=== PATIENT | female | born 1990 | race Two or more races ===

== ENCOUNTER → 2019-09-19 | Outpatient (CLI) | payer BC ==
[2019-09-19 11:11] LABS: Urine WBC None Seen /hpf (0 - 5)
[2019-09-19 11:17] LABS: Basophils # (auto) 0.1 uL; Eosinophils # (auto) 0.1 uL; Mean Corpuscular Hemoglobin 18.5 pg (28.0-32.0); Mean Corpuscular Volume 58.4 fL (80.0-100.0); Monocytes # (auto) 0.6 uL
[2019-09-19 11:19] LABS: Basophils % (auto) 0.8 % (0.0-2.0); Eosinophils % (auto) 1.1 % (0.0-7.0); Hematocrit 38.4 % (36.0-46.0); Hemoglobin 12.1 g/dL (12.2-16.2); Lymphocytes # (auto) 2.8 uL; Lymphocytes % (auto) 30.1 % (10.0-50.0); Mean Corpuscular Hgb Conc. 31.6 g/dL (32.0-36.0); Monocytes % (auto) 6.1 % (0.0-12.0); Neutrophils # (auto) 5.8 uL; Neutrophils % (auto) 61.9 % (37.0-80.0); Nucleated Red Blood Cells % 0.1 %; Platelet Count (auto) 213 10^3/uL (140-450); Red Blood Cells 6.56 10^6/uL (4.0-5.20); Red Cell Distribution Width 18.9 % (11.8-14.3); White Blood Cell 9.3 10^3/uL (4.4-10.8)
[2019-09-19 11:40] LABS: Albumin 3.7 g/dL (3.4-5.0); Calcium 9.2 mg/dL (8.5-10.1); Potassium 4.2 mmol/L (3.5-5.1)
[2019-09-19 11:52] LABS: BUN/Creatinine Ratio 26.2; Bilirubin, Total 0.7 mg/dL (0.2-1.0); CRP High Sensitivity 0.87 mg/dL (< 0.3); Total Protein 8.1 g/dL (6.4-8.2)
[2019-09-19 12:10] LABS: Urine Bacteria NONE SEEN /hpf (None Seen); Urine Blood Negative /uL (Negative); Urine Specific Gravity 1.022 (1.001-1.035)
== END | disposition home or self-care (01) ==
LOC: LAB 10:58
PROVIDERS: ATTEND Internal Medicine
DX: M25.531 Pain in right wrist (principal)
CPT/HCPCS: 36415; 80053; 80061; 81001; 85025; 85652; 86141

== ENCOUNTER → 2020-12-10 | Outpatient (CLI) | payer BC | END | disposition home or self-care (01) | LOC: LAB 10:13 | PROVIDERS: ATTEND Internal Medicine | DX: R05 Cough (principal); R06.00 Dyspnea, unspecified | CPT/HCPCS: 36415; 85379 ==

== ENCOUNTER → 2021-08-31 | Outpatient (CLI) | payer BC ==
[2021-08-31 07:10] LABS: Eosinophils # (auto) 0.1 10 ^3/uL (0-0.8); Eosinophils % (auto) 1.1 % (0.0-7.0); Mean Corpuscular Hgb Conc. 31.6 g/dL (32.0-36.0); Neutrophils # (auto) 5.2 10 ^3/uL (1.6-8.6); Neutrophils % (auto) 58.3 % (37.0-80.0); Red Blood Cells 6.71 10^6/uL (4.0-5.20)
[2021-08-31 07:12] LABS: Basophils # (auto) 0 10 ^3/uL (0-0.2); Basophils % (auto) 0.4 % (0.0-2.0); Lymphocytes # (auto) 3.1 10 ^3/uL (0.4-5.4); Lymphocytes % (auto) 35.1 % (10.0-50.0); Mean Corpuscular Hemoglobin 17.9 pg (28.0-32.0); Mean Corpuscular Volume 56.6 fL (80.0-100.0); Monocytes # (auto) 0.5 10 ^3/uL (0-1.3); Monocytes % (auto) 5.1 % (0.0-12.0); Red Cell Distribution Width 19.6 % (11.8-14.3); White Blood Cell 8.9 10^3/uL (4.4-10.8)
[2021-08-31 07:48] LABS: Albumin 3.9 g/dL (3.4-5.0); Calcium 9.2 mg/dL (8.5-10.1); Potassium 3.9 mmol/L (3.5-5.1)
[2021-08-31 07:53] LABS: BUN/Creatinine Ratio 21.4; Bilirubin, Total 0.6 mg/dL (0.2-1.0); Total Protein 7.8 g/dL (6.4-8.2)
== END | disposition home or self-care (01) ==
LOC: LAB 06:44
PROVIDERS: ATTEND Internal Medicine
DX: E78.5 Hyperlipidemia, unspecified (principal); D64.9 Anemia, unspecified
CPT/HCPCS: 36415; 80053; 80061; 84443; 85025; 85652

== ENCOUNTER → 2021-10-25 | Outpatient (CLI) | payer BC ==
[2021-10-25 10:12] LABS: Follicle Stimulating Hormone 5.15 IU/L (SEE BELOW)
[2021-10-25 12:44] LABS: Leuteinizing Hormone 5.1 IU/L
== END | disposition home or self-care (01) ==
LOC: LAB 08:41
PROVIDERS: ATTEND Obstetrics & Gynecology
DX: N92.1 Excessive and frequent menstruation with irregular cycle (principal)
CPT/HCPCS: 36415; 82670; 83001; 83002; 84403; 84443

== ENCOUNTER → 2021-11-15 | Outpatient (CLI) | payer BC ==
[~2021-11-15] MED LIST: HYDR-4902 PO; IBUP800T27 PO; ONDA-144 PO
== END | disposition home or self-care (01) ==
LOC: LAB 09:07
PROVIDERS: ATTEND Obstetrics & Gynecology
DX: N85.00 Endometrial hyperplasia, unspecified (principal); N92.0 Excessive and frequent menstruation with regular cycle

== ENCOUNTER → 2021-12-02 | Day surgery (SDC) | payer BC ==
[2021-11-30 11:12] LABS: Basophils # (auto) 0.1 10 ^3/uL (0-0.2); Basophils % (auto) 0.8 % (0.0-2.0); Eosinophils # (auto) 0 10 ^3/uL (0-0.8); Eosinophils % (auto) 0.6 % (0.0-7.0); Hematocrit 38.1 % (36.0-46.0); Hemoglobin 12.1 g/dL (12.2-16.2); Lymphocytes # (auto) 2.5 10 ^3/uL (0.4-5.4); Lymphocytes % (auto) 29.6 % (10.0-50.0); Mean Corpuscular Hemoglobin 17.8 pg (28.0-32.0); Mean Corpuscular Hgb Conc. 31.6 g/dL (32.0-36.0); Mean Corpuscular Volume 56.2 fL (80.0-100.0); Monocytes # (auto) 0.4 10 ^3/uL (0-1.3); Monocytes % (auto) 4.5 % (0.0-12.0); Neutrophils # (auto) 5.4 10 ^3/uL (1.6-8.6); Neutrophils % (auto) 64.5 % (37.0-80.0); Nucleated Red Blood Cells % 0.1 %; Red Blood Cells 6.79 10^6/uL (4.0-5.20); Red Cell Distribution Width 19.2 % (11.8-14.3); White Blood Cell 8.4 10^3/uL (4.4-10.8)
[2021-11-30 11:31] LABS: INR 0.98 (0.9-1.15); Partial Thromboplastin Time 28.3 sec (23.6-33.0)
[2021-11-30 11:33] LABS: Urine Bacteria FEW /hpf (None Seen); Urine Blood 3+ /uL (Negative); Urine Specific Gravity 1.012 (1.001-1.035); Urine WBC 1 /hpf (0 - 5)
[2021-11-30 11:54] LABS: Albumin 3.8 g/dL (3.4-5.0); Calcium 9.5 mg/dL (8.5-10.1); Potassium 3.7 mmol/L (3.5-5.1)
[2021-11-30 11:56] LABS: BUN/Creatinine Ratio 19.7
[2021-11-30 11:59] LABS: Bilirubin, Total 0.4 mg/dL (0.2-1.0); Total Protein 8.3 g/dL (6.4-8.2)
[~2021-12-02] VITALS: Ht 165.1 cm; Wt 99.8 kg
[~2021-12-02] MED LIST changes: +CHLORHEXIDINE 4% TOPICAL soln 118ml TOP ONE; +DexAMETHasone SOD PHOS 10MG/1ML VIAL INJ ONE; +LABETALOL HCL 5 MG/ML 4ML SYRINGE IV PRN; +LACTATED RINGER'S 1,000 ML IV SCH; +MEPERIDINE HCL (25 MG/ML) 1ML VIAL ONE; +MIDAZOLAM HCL 2MG/2ML 2ml VIAL (1mg/ml) IV PRN; +MIDAZOLAM HCL 2MG/2ML 2ml VIAL (1mg/ml) ONE; +MORPHINE SULFATE 4 MG/ML SYR/VIAL IV PRN; +ONDANSETRON HCL 4 MG/2 ML VIAL IV PRN; +PROPOFOL 10 MG/ML 20 ML IV ONE; +ePHEDrine SULFATE 50 MG/ML AMP IV PRN; +fentaNYL CITRATE 100 MCG/2 ML VL ONE
[2021-12-02] MEDS: ceFAZolin 1GM/50ML 50 ML IV ONE ×4 (07:15→09:55)
[2021-12-02] MEDS: HYDROmorphone HCL 2 MG/ML VL IV PRN ×2 (08:30→08:45)
[2021-12-02 09:05] VITALS: BP 109/62
== END | disposition home or self-care (01) ==
LOC: SUR 06:12
PROVIDERS: ATTEND Obstetrics & Gynecology
DX: N93.9 Abnormal uterine and vaginal bleeding, unspecified (principal); N85.00 Endometrial hyperplasia, unspecified; E28.2 Polycystic ovarian syndrome; E66.9 Obesity, unspecified; Z68.36 Body mass index [BMI] 36.0-36.9, adult; Z83.2 Family history of diseases of the blood and blood-forming organs and certain disorders involving the immune mechanism; Z20.822 Contact with and (suspected) exposure to COVID-19; Z98.51 Tubal ligation status
CPT/HCPCS: 36415; 58563; 80053; 81001; 81025; 84702; 85025; 85610; 85730; 86850; 86900; 86901; 88305; J0690; J1100; J1170; J2175; J2250; J2704; J3010; U0003

== ENCOUNTER 2024-10-02 18:22 | Inpatient (IN) | payer BC ==
[~2024-10-02] VITALS: Ht 165.1 cm; Wt 98.4 kg
[~2024-10-02 18:22] MED LIST changes: -CHLORHEXIDINE 4% TOPICAL soln 118ml TOP ONE; -DexAMETHasone SOD PHOS 10MG/1ML VIAL INJ ONE; +IBUP-1456 PO; -IBUP800T27 PO; -LABETALOL HCL 5 MG/ML 4ML SYRINGE IV PRN; -LACTATED RINGER'S 1,000 ML IV SCH; -MEPERIDINE HCL (25 MG/ML) 1ML VIAL ONE; -MIDAZOLAM HCL 2MG/2ML 2ml VIAL (1mg/ml) IV PRN; -MIDAZOLAM HCL 2MG/2ML 2ml VIAL (1mg/ml) ONE; -MORPHINE SULFATE 4 MG/ML SYR/VIAL IV PRN; -ONDANSETRON HCL 4 MG/2 ML VIAL IV PRN; -PROPOFOL 10 MG/ML 20 ML IV ONE; -ePHEDrine SULFATE 50 MG/ML AMP IV PRN; -fentaNYL CITRATE 100 MCG/2 ML VL ONE
--- NOTE | 2024-10-02 19:07 | ED.PDOC ---
General HPI Comments 33y F who presents to the ED for chief complaint of flank pain. Pt states she has been having L sided flank pain for the past few weeks. Pt states the pain is constant, rating the pain 6/10, constant, radiating to the L side of the abdomen, with no associated exacerbating or relieving factors. Pt has been having associated nausea, diarrhea, and hematuria but otherwise denies fever, cough, chills, dysuria, or vomiting. Pt states she was also recently diagnosed with enlarged liver and spleen but states no cause has been found for her symptoms. Pt otherwise Time Seen by MD: 19:01 Reviewed notes: Nurses Notes Allergies: Coded Allergies: Shellfish Allergy (Verified Allergy, Intermediate, 10/02/24) Home Meds Active Scripts Ondansetron (Zofran) 4 Mg Tab, 4 MG PO Q4HPRN PRN, #30 TAB Prov:EROS THOMASMARLEN BALDERAS 12/02/21 Ibuprofen (Ibuprofen) 800 Mg Tab, 800 MG PO TID PRN for 15 Days, #40 TAB Prov:WISAM THOMAS 12/02/21 Hydrocodone-Acetaminophen (Hydrocodone Bitartrate/AC 5-325 mg) 1 Tab Tab, 1 TAB PO Q6HPRN PRN for 4 Days, #16 TAB Prov:WISAM THOMAS 12/02/21 Information Source: Patient Mode of Arrival: Ambulatory Brought in by: self Severity: Moderate Inability to void: None Timing: Weeks Duration: Since onset Prehospital treatment: None Onset: Spontaneous Symptoms: Hematuria History of: None Location: (L)Flank Modifying factors: None associated signs and symptoms: Nausea, Flank Pain Past Medical History PAST MEDICAL HISTORY: Denies Surgical History: Tubal Ligation [employer] History: Unknown Family History Family History: Unknown Social History Smoker: Non-Smoker Alcohol: Denies ETOH Use Drugs: Denies Drug Use Lives In: Home Constitutional: denies: chills, diaphoresis, fatigue, fever, malaise, sweats, weakness, others EENTM: denies: blurred vision, double vision, ear bleeding, ear discharge, ear drainage, ear pain, ear ringing, eye pain, eye redness, hearing loss, mouth pain, mouth swelling, nasal discharge, nose bleeding, nose congestion, nose pain, photophobia, tearing, throat pain, throat swelling, voice changes, others Respiratory: denies: cough, hemoptysis, orthopnea, SOB at rest, shortness of breath, SOB with excertion, stridor, wheezing, others Cardiovascular: denies: chest pain, dizzy spells, diaphoresis, Dyspnea on exertion, edema, irregular heart beat, left arm pain, lightheadedness, palpitations, PND, syncope, others Gastrointestinal: reports: diarrhea, nausea; denies: abdomen distended, abdominal pain, blood streaked bowels, constipated, dysphagia, difficulty swallowing, hematemesis, melena, poor appetite, poor fluid intake, rectal bleeding, rectal pain, vomiting, others Genitourinary: reports: flank pain, hematuria; denies: abnormal vagina bleeding, burning, dyspareunia, dysuria, frequency, incontinence, pain, , vagina discharge, urgency, others Neurological: denies: dizziness, fainting, headache, left sided numbness, left sided weakness, numbness, paresthesia, pre-existing deficit, right sided numbness, right sided weakness, seizure, speech problems, tingling, tremors, weakness, others Musculoskeletal: denies: back pain, gout, joint pain, joint swelling, muscle pain, muscle stiffness, neck pain, others Integumetry: denies: bruises, change in color, change in hair/nails, dryness, laceration, lesions, lumps, rash, wounds, others Allergic/Immunocompromised: denies: Difficulty Healing, Frequent Infections, Hives, Itching, others Hematologic/Lymphatic: denies: anemia, blood clots, easy bleeding, easy bruising, swollen glands, others Endocrine: denies: excessive hunger, excessive sweating, excessive thirst, excessive urination, flushing, intolerance to cold, intolerance to heat, unexplained weight gain, unexplained weight loss, others Psychiatric: denies: anxiety, bipolar disorder, depression, hopeless, panic disorder, schizophrenia, sleepless, suicidal, others All Other Systems: Reviewed and Negative Physical Exam General Appearance: Moderate Distress HEENT: Normal ENT Inspection, Pharynx Normal, TMs Normal Neck: Full Range of Motion, Non-Tender, Normal, Normal Inspection Respiratory: Chest Non-Tender, Lungs Clear, No Accessory Muscle Use, No Respiratory Distress, Normal Breath Sounds Cardiovascular: No Edema, No JVD, No Murmur, No Gallop, Normal Peripheral Pulses, Regular Rate/Rhythm Breast Exam: Deferred Gastrointestinal: No Organomegaly, Non Tender, No Pulsatile Mass, Normal Bowel Sounds, Soft Genitalia: Deferred Pelvic: Deferred Rectal: Deferred Extremities: No calf tenderness, Normal capillary refill, Normal inspection, Normal range of motion, Non-tender, No pedal edema Musculoskeletal : Location: Left Extremity Location: Back Apperance: Tenderness: Moderate Neurologic: Alert, food products tester II-XII nml as Tested, No Motor Deficits, Normal Affect, Normal Mood, No Sensory Deficits Cerebellar Function: Normal Reflexes: Normal Skin: Dry, Normal Color, Warm Lymphatic: No Adenopathy Was a procedure done? Was a procedure done?: No Differential Diagnosis Kidney stone (Female): Cholelithiasis, DJD, Musculoskeletal pain, Ovarian torsion, Pyelonephritis, Strain, Urolithiasis Urinary Problem (Female): PID, Pyelonephritis, UTI X-Ray, Labs, Meds, VS Vital Signs Date Time Temp Pulse Resp B/P (MAP) Pulse Ox O2 Delivery O2 Flow Rate FiO2 10/02/24 20:08 Room Air* 0 21 10/02/24 20:07 98.5 93 16 123/80 (94) 97 98.5 10/02/24 19:03 98.9 99 17 113/87 (96) 97 Lab Test 10/02/24 19:00 10/02/24 18:59 Range/Units White Blood Count 14.9 H 4.4-10.8 10^3/uL Red Blood Count 6.96 H 4.0-5.20 10^6/uL Hemoglobin 12.7 12.2-16.2 g/dL Hematocrit 40.2 36.0-46.0 % Mean Corpuscular Volume 57.7 L 80.0-100.0 fL Mean Corpuscular Hemoglobin 18.2 L 28.0-32.0 pg Mean Corpuscular Hemoglobin Concent 31.5 L 32.0-36.0 g/dL Red Cell Distribution Width 19.6 H 11.8-14.3 % Platelet Count 311 140-450 10^3/uL Mean Platelet Volume 8.1 6.9-10.8 fL Neutrophils (%) (Auto) 68.4 37.0-80.0 % Lymphocytes (%) (Auto) 26.2 10.0-50.0 % Monocytes (%) (Auto) 4.4 0.0-12.0 % Eosinophils (%) (Auto) 0.2 0.0-7.0 % Basophils (%) (Auto) 0.8 0.0-2.0 % Neutrophils # (Auto) 10.2 H 1.6-8.6 10 ^3/uL Lymphocytes # (Auto) 3.9 0.4-5.4 10 ^3/uL Monocytes # (Auto) 0.7 0-1.3 10 ^3/uL Eosinophils # (Auto) 0 0-0.8 10 ^3/uL Basophils # (Auto) 0.1 0-0.2 10 ^3/uL Nucleated Red Blood Cells 0.1 % Platelet Estimate Adequate Hypochromasia (manual) Marked Anisocytosis (manual) Moderate Microcytosis Marked Prothrombin Time 10.2 9.3-11.8 sec Prothrombin Time INR 0.96 0.9-1.15 Activated Partial Thromboplast Time 29.2 24.5-34.5 SEC Sodium Level 137 136-145 mmol/L Potassium Level 3.6 3.5-5.1 mmol/L Chloride Level 106 98-107 mmol/L Carbon Dioxide Level 23 20-31 mmol/L Anion Gap 8 5-15 Blood Urea Nitrogen 13 9-23 mg/dL Creatinine 0.73 0.550-1.02 mg/dL Glomerular Filtration Rate Calc 111 >90 mL/min BUN/Creatinine Ratio 17.8 10.0-20.0 Serum Glucose 94 74-106 mg/dL POC Glucose 90 70-106 mg/dl Calcium Level 10.1 8.7-10.4 mg/dL Total Bilirubin 0.5 0.2-1.0 mg/dL Aspartate Amino Transferase (AST) 17 13-40 U/L Alanine Aminotransferase (ALT) 18 7-40 U/L Alkaline Phosphatase 109 46-116 U/L Total Protein 7.8 5.7-8.2 g/dL Albumin 4.5 3.2-4.8 g/dL Lipase 40 12-53 U/L Urine Color Light-yellow Yellow Urine Clarity Clear Clear Urine pH 5.5 5.0-9.0 Urine Specific [place] 1.013 1.001-1.035 Urine Protein Negative Negative Urine Ketones Negative Negative Urine Blood 1+ H Negative /uL Urine Nitrite Negative Negative Urine Bilirubin Negative Negative Urine Urobilinogen Normal Negative mg/dL Urine Leukocyte Esterase Negative Negative /uL Urine RBC 1 0 - 4 /hpf Urine WBC <1 0 - 5 /hpf Urine Squamous Epithelial Cells Few <5 /hpf Urine Bacteria None seen None Seen /hpf Urine Glucose Normal Normal mg/dL Current Medications Medications (Trade) Dose Ordered Sig/Ingrid Route Start Time Stop Time Status Last Admin Ondansetron HCl (Zofran) 4 mg ONCE ONCE IV 10/02/24 19:00 10/02/24 19:01 DC 10/02/24 20:52 Sodium Chloride 1,000 ml @ 1,000 mls/hr Q1H ONCE IVB 10/02/24 19:00 10/02/24 19:59 DC 10/02/24 20:50 Ceftriaxone Sodium 50 ml @ 100 mls/hr ONCE ONCE IV 10/02/24 20:30 10/02/24 20:59 DC 10/02/24 21:02 Procedure: CT CT AB PEL WO CON-NO ORAL OR IV 10/02/2024 07:03 PM IMPRESSION: 1. No CT evidence of acute abnormality in the abdomen and pelvis. 2. Mild splenomegaly. 3. Several subcentimeter nonobstructing left renal calculi measuring up to 3 mm. No hydronephrosis or hydroureter. The patient was given Zofran 4 mg IV push The patient was given 1 L bolus of normal saline Patient was started on Rocephin IV piggyback The urine test is negative The patient was CBC shows an elevated white blood cell count of 14.9 The rest of the CBC is within normal limits. The patient was being admitted to the hospitalist. Images Reviewed?: Images reviewed and evaluated by me Time of 1ST Reevaluation: 19:30 Reevaluation 1ST: Unchanged Patient Education/Counseling: Diagnosis, Treatment, Prognosis Family Education/Counseling: No Family Present Additional Information - I reviewed the following notes from patient's past medical encounters: - The following tests were ordered, and results were reviewed by me: (Labs, X- Ray, EKG): cbc, cmp, lipase, ua, PTPTT, - Additional information was gathered from interviewing the following independent Historian: (Family, Other Providers, EMT): none - I reviewed and agreed with the following test results read by other provider: (X-ray, CT, US): none - I discussed treatments and results with medical personnel and: (consultants, family): none Departure 1 Departure Time of Disposition: 21:16 Impression: Primary Impression: Intractable abdominal pain Additional Impressions: Nephrolithiasis Intractable vomiting Disposition: ADMITTED INPATIENT Admit to: Med Surg Condition: Fair Critical Care Note Critical Care Time?: No Stability Stability form required: No Heart Score Heart Score: Heart Score Response (Comments) Value History N/A 0 EKG N/A 0 Age N/A 0 Risk Factors N/A 0 Troponin N/A 0 Total 0 I personally scribed for SONIA ROMEO MD ([email or web address]) on 10/02/24 at 19:07. Electronically submitted by Willam Love ([employer] I personally scribed for SONIA ROMEO MD ([email or web address]) on 10/02/24 at 19:16. Electronically submitted by Willam Love ([employer]). I personally scribed for SONIA ROMEO MD ([email or web address]) on 10/02/24 at 19:36. Electronically submitted by Willam Love ([email or web address]). SONIA ROMEO MD Oct 02, 2024 19:07
[2024-10-02 19:21] LABS: Basophils # (auto) 0.1 10 ^3/uL (0-0.2); Basophils % (auto) 0.8 % (0.0-2.0); Eosinophils # (auto) 0 10 ^3/uL (0-0.8); Eosinophils % (auto) 0.2 % (0.0-7.0); Hematocrit 40.2 % (36.0-46.0); Hemoglobin 12.7 g/dL (12.2-16.2); Lymphocytes # (auto) 3.9 10 ^3/uL (0.4-5.4); Lymphocytes % (auto) 26.2 % (10.0-50.0); Mean Corpuscular Hemoglobin 18.2 pg (28.0-32.0); Mean Corpuscular Hgb Conc. 31.5 g/dL (32.0-36.0); Mean Corpuscular Volume 57.7 fL (80.0-100.0); Monocytes # (auto) 0.7 10 ^3/uL (0-1.3); Monocytes % (auto) 4.4 % (0.0-12.0); Neutrophils # (auto) 10.2 10 ^3/uL (1.6-8.6); Neutrophils % (auto) 68.4 % (37.0-80.0); Nucleated Red Blood Cells % 0.1 %; Platelet Count (auto) 311 10^3/uL (140-450); Red Blood Cells 6.96 10^6/uL (4.0-5.20); Red Cell Distribution Width 19.6 % (11.8-14.3); White Blood Cell 14.9 10^3/uL (4.4-10.8)
[2024-10-02 19:26] LABS: Urine Bacteria None Seen /hpf (None Seen)
[2024-10-02 19:28] LABS: Urine Blood 1+ /uL (Negative); Urine Clarity Clear (Clear); Urine Color Light-Yellow (Yellow); Urine Protein, UAD Negative (Negative); Urine Specific Gravity 1.013 (1.001-1.035); Urine Squamous Epithelial Cell FEW /hpf (<5); Urine Urobilinogen Normal (Negative); Urine WBC <1 /hpf (0 - 5); Urine pH 5.5 (5.0-9.0)
[2024-10-02 19:32] LABS: Alanine Aminotransferase 18 U/L (7-40); Albumin 4.5 g/dL (3.2-4.8); Alkaline Phosphatase 109 U/L (46-116); Anion Gap 8 (5-15); Aspartate Aminotransferase 17 U/L (13-40); BUN/Creatinine Ratio 17.8 (10.0-20.0); Bilirubin, Total 0.5 mg/dL (0.2-1.0); Blood Urea Nitrogen 13 mg/dL (9-23); Calcium 10.1 mg/dL (8.7-10.4); Carbon Dioxide 23 mmol/L (20-31); Chloride 106 mmol/L (98-107); Glucose 94 mg/dL (74-106); Lipase 40 U/L (12-53); Potassium 3.6 mmol/L (3.5-5.1); Sodium 137 mmol/L (136-145); Total Protein 7.8 g/dL (5.7-8.2)
--- NOTE | 2024-10-02 19:34 | DVH ---
Procedure: CT CT AB PEL WO CON-NO ORAL OR IV 10/02/2024 07:03 PM Indication: left flank pain Comparison Study: None available at time of dictation. Technique: Axial images were obtained and reformatted in coronal and sagittal planes. All CT scans at this medical facility are performed using dose modulation techniques as appropriate t o a performed exam including the following: Automated exposure control was utilized; adjustment of th e MA and/or KV according to patient size; and use of iterative reconstruction technique. CT Dose: CTDI volume is 22 mGy. Dose-length product is 1093 mGy*cm FINDINGS: Lower Chest: Unremarkable. Hepatobiliary: Elongated left hepatic lobe. No calcified gallstones. No intrahepatic or extrahepatic ductal dilatation. Spleen: 14.5 cm in AP. Pancreas: Unremarkable. Adrenal Glands: Unremarkable. tract: The kidneys are normal in size bilaterally without hydronephrosis . 2 subcentimeter calculi are seen in the left kidney measuring up to 3 mm. The urinary bladder is unremarkable. GI tract: The stomach is grossly normal in appearance. No evidence of small bowel obstruction. The la rge bowel is unremarkable. The appendix is normal. Lymphatics: No mesenteric, retroperitoneal or periportal lymphadenopathy. Vasculature: The abdominal aorta is normal in in caliber. Pelvic Organs: Unremarkable Bones/soft tissues: No acute osseous abnormality. A small fat-containing umbilical hernia noted. Mild chronic appearing anterior compression deformities of several lower thoracic vertebrae noted with le ss than height anteriorly without retropulsion. A subcentimeter sclerotic focus seen in body most lik esha a benign bone island considering patient's demographics. Other: None. IMPRESSION: 1. No CT evidence of acute abnormality in the abdomen and pelvis. 2. Mild splenomegaly. 3. Several subcentimeter nonobstructing left renal calculi measuring up to 3 mm. No hydronephrosis or hydroureter.
[2024-10-02 19:37] LABS: INR 0.96 (0.9-1.15); Partial Thromboplastin Time 29.2 SEC (24.5-34.5); Prothrombin Time 10.2 sec (9.3-11.8)
[2024-10-02 20:07] LABS: Anisocytosis Moderate; Hypochromia Marked; Platelet Estimate Adequate
[2024-10-02] MEDS ORDERED: DOCUSATE SOD 100 MG CAP PO PRN (20:30)
[2024-10-02] MEDS ORDERED: ACETAMINOPHEN 325 MG TAB PO PRN (20:30)
[2024-10-02] MEDS ORDERED: MORPHINE SULFATE INJ 2 MG/ml SYRG IV PRN ×2 (20:30→21:45)
[2024-10-02] MEDS: SODIUM CHLORIDE 0.9% 1,000 ML IVB ONE (20:50)
[2024-10-02] MEDS: ONDANSETRON HCL 4 MG/2 ML VIAL IV ONE (20:52)
[2024-10-02] MEDS: cefTRIAXone 1GM/50ML D5W 50 ML IV ONE (21:02)
[2024-10-02] MEDS: KETOROLAC TROMETH 30 MG/ML 1ML VIAL IV ONE (21:22)
--- NOTE | 2024-10-02 21:43 | DVHHP2 ---
History of Present Illness Reason for Visit: Intractable abdominal pain History of Present Illness The patient is a 33-year-old female who denies past medical history presented to [facility] ED with complaint of flank pain. Patient reports she has been having left side flank pain for the past 2-3 weeks, radiating to the left side of the abdomen rating 6/10 scale, associated nausea, diarrhea, hematuria, getting worse that prompted this visit. Patient reports she was also recently diagnosed with enlarged liver and spleen but states no cause has been found for her symptoms. Patient was seen and evaluated in the ED, laboratory data shows WBC 14.9, platelets 311, sodium 137, potassium 3.6, BUN 13, creatinine 0.73, GFR 111, glucose 94, lipase 40. Abdomen/pelvis CT revealing several subcentimeter nonobstructing left renal calculi measuring up to 3 mm, mild splenomegaly, no hydronephrosis or hydroureter. On my assessment, patient denied chest pain, headache, no dizziness, no diaphoresis, no abdominal pain, no nausea at this moment, no fever, no chills. Patient was admitted for further evaluation and medical management. Past Medical History Denies past medical history Past Surgical History Tubal Ligation Family History Reviewed, noncontributory to the management of this case. Past Social History The patient lives at home, denies smoking, alcohol or illicit drugs abuse. Review of Systems Constitutional: No: Fever, Chills, Sweats, Weakness, Malaise, Other Eyes: No: Pain, Vision change, Conjunctivae inflammation, Eyelid inflammation, Other, Redness ENT: No: Ear pain, Ear discharge, Nose pain, Nose discharge, Nose congestion, Mouth pain, Mouth swelling, Throat pain, Throat swelling, Other Respiratory: No: Cough, Dry, Shortness of breath, SOB with excertion, Wheezing, Hemoptysis, Pleuritic Pain, Sputum, Wheezing, Other Cardiovascular: No: Chest Pain, Palpitations, Orthopnea, Paroxysmal Noc. Dyspnea, Edema, Lt Headedness, Other Gastrointestinal: Nausea, Abdominal Pain, Diarrhea; No: Vomiting, Constipation, Melena, Hematochezia, Other Genitourinary: No Dysuria, No Frequency, No Incontinence; Hematuria; No Retenti on; Other (Flank pain) Musculoskeletal: No: other, neck pain, shoulder pain, arm pain, back pain, hand pain, leg pain, foot pain Skin: No: Rash, Lesions, Jaundice, Bruising, Other Neurological: No: Weakness, Numbness, Incoordination, Change in speech, Confusion, Seizures, Other Allergies: Coded Allergies: Shellfish Allergy (Verified Allergy, Intermediate, 10/02/24) Medications Current Medications Medications Dose Ordered Sig/Ingrid Route Start Time Stop Time Status Last Admin Dose Admin Ceftriaxone Sodium 50 ml @ 100 mls/hr DAILY@09 IV 10/03/24 09:00 Sodium Chloride 1,000 ml @ 100 mls/hr Q10H IV 10/02/24 20:30 Acetaminophen/ Hydrocodone Bitart 1 tab Q4HP PRN PO 10/02/24 20:30 Ondansetron HCl 4 mg Q4HP PRN IV 10/02/24 20:30 Docusate Sodium 100 mg BIDPRN PRN PO 10/02/24 20:30 Acetaminophen 650 mg Q6HP PRN PO 10/02/24 20:30 Morphine Sulfate 2 mg Q4HPRN PRN IV 10/02/24 20:30 Exam Vital Signs Vital Signs Date Time Temp Pulse Resp B/P (MAP) Pulse Ox O2 Delivery O2 Flow Rate FiO2 10/02/24 20:08 Room Air* 0 21 10/02/24 20:07 98.5 93 16 123/80 (94) 97 98.5 General Appearance: Alert, Oriented X3, Cooperative, No acute distress HEENT: Atraumatic, PERRLA, EOMI, Mucous membr. moist/pink Respiratory: Clear to auscultation, Normal air movement Cardiovascular: Regular rate, Normal S1, Normal S2, No murmurs Abdominal: Normal bowel sounds, Soft, No tenderness, No hepatospenomegaly, No masses Extremities: No clubbing, No cyanosis, No edema, Normal pulses, No tenderness/swelling Skin: No rashes, No breakdown, No significant lesion Neuro: Normal speech, Normal tone, Sensation intact, Cranial nerves 3-12 NL, Reflexes 2+, Other (Generalized weakness) Psych/Mental Status: Mental status NL, Mood NL Labs/Xrays Labs Test 10/02/24 19:00 10/02/24 18:59 Range/Units White Blood Count 14.9 H 4.4-10.8 10^3/uL Red Blood Count 6.96 H 4.0-5.20 10^6/uL Hemoglobin 12.7 12.2-16.2 g/dL Hematocrit 40.2 36.0-46.0 % Mean Corpuscular Volume 57.7 L 80.0-100.0 fL Mean Corpuscular Hemoglobin 18.2 L 28.0-32.0 pg Mean Corpuscular Hemoglobin Concent 31.5 L 32.0-36.0 g/dL Red Cell Distribution Width 19.6 H 11.8-14.3 % Platelet Count 311 140-450 10^3/uL Mean Platelet Volume 8.1 6.9-10.8 fL Neutrophils (%) (Auto) 68.4 37.0-80.0 % Lymphocytes (%) (Auto) 26.2 10.0-50.0 % Monocytes (%) (Auto) 4.4 0.0-12.0 % Eosinophils (%) (Auto) 0.2 0.0-7.0 % Basophils (%) (Auto) 0.8 0.0-2.0 % Neutrophils # (Auto) 10.2 H 1.6-8.6 10 ^3/uL Lymphocytes # (Auto) 3.9 0.4-5.4 10 ^3/uL Monocytes # (Auto) 0.7 0-1.3 10 ^3/uL Eosinophils # (Auto) 0 0-0.8 10 ^3/uL Basophils # (Auto) 0.1 0-0.2 10 ^3/uL Nucleated Red Blood Cells 0.1 % Platelet Estimate Adequate Hypochromasia (manual) Marked Anisocytosis (manual) Moderate Microcytosis Marked Prothrombin Time 10.2 9.3-11.8 sec Prothrombin Time INR 0.96 0.9-1.15 Activated Partial Thromboplast Time 29.2 24.5-34.5 SEC Sodium Level 137 136-145 mmol/L Potassium Level 3.6 3.5-5.1 mmol/L Chloride Level 106 98-107 mmol/L Carbon Dioxide Level 23 20-31 mmol/L Anion Gap 8 5-15 Blood Urea Nitrogen 13 9-23 mg/dL Creatinine 0.73 0.550-1.02 mg/dL Glomerular Filtration Rate Calc 111 >90 mL/min BUN/Creatinine Ratio 17.8 10.0-20.0 Serum Glucose 94 74-106 mg/dL POC Glucose 90 70-106 mg/dl Calcium Level 10.1 8.7-10.4 mg/dL Total Bilirubin 0.5 0.2-1.0 mg/dL Aspartate Amino Transferase (AST) 17 13-40 U/L Alanine Aminotransferase (ALT) 18 7-40 U/L Alkaline Phosphatase 109 46-116 U/L Total Protein 7.8 5.7-8.2 g/dL Albumin 4.5 3.2-4.8 g/dL Lipase 40 12-53 U/L Urine Color Light-yellow Yellow Urine Clarity Clear Clear Urine pH 5.5 5.0-9.0 Urine Specific [place] 1.013 1.001-1.035 Urine Protein Negative Negative Urine Ketones Negative Negative Urine Blood 1+ H Negative /uL Urine Nitrite Negative Negative Urine Bilirubin Negative Negative Urine Urobilinogen Normal Negative mg/dL Urine Leukocyte Esterase Negative Negative /uL Urine RBC 1 0 - 4 /hpf Urine WBC <1 0 - 5 /hpf Urine Squamous Epithelial Cells Few <5 /hpf Urine Bacteria None seen None Seen /hpf Urine Glucose Normal Normal mg/dL PATIENT: ALEXA WEBSTER ACCT: [id number] UNIT: [id number] : 1990 LOC: ER ROOM / BED: / AGE / SEX: 33 / F ADM STATUS: REG ER SERVICE 54 ORDERING PHYSICIAN: SONIA ROMEO MD PROCEDURE(s): ABPL - CT AB PEL WO CON-NO ORAL OR IV REASON: left flank pain ORDER NUMBER(s): [id number], ACCESSION NUMBER(s): [id number] Procedure: CT CT AB PEL WO CON-NO ORAL OR IV 10/02/2024 07:03 PM Indication: left flank pain Comparison Study: None available at time of dictation. Technique: Axial images were obtained and reformatted in coronal and sagittal planes. All CT scans at this medical facility are performed using dose modulation techniques as appropriate to a performed exam including the following: Automated exposure control was utilized; adjustment of the MA and/or KV according to patient size; and use of iterative reconstruction technique. CT Dose: CTDI volume is 22 mGy. Dose-length product is 1093 mGy*cm FINDINGS: Lower Chest: Unremarkable. Hepatobiliary: Elongated left hepatic lobe. No calcified gallstones. No intrahepatic or extrahepatic ductal dilatation. Spleen: 14.5 cm in AP. Pancreas: Unremarkable. Adrenal Glands: Unremarkable. tract: The kidneys are normal in size bilaterally without hydronephrosis. 2 subcentimeter calculi are seen in the left kidney measuring up to 3 mm. The urinary bladder is unremarkable. GI tract: The stomach is grossly normal in appearance. No evidence of small bowel obstruction. The large bowel is unremarkable. The appendix is normal. Lymphatics: No mesenteric, retroperitoneal or periportal lymphadenopathy. Vasculature: The abdominal aorta is normal in in caliber. Pelvic Organs: Unremarkable Bones/soft tissues: No acute osseous abnormality. A small fat-containing umbilical hernia noted. Mild chronic appearing anterior compression deformities of several lower thoracic vertebrae noted with less than height anteriorly without retropulsion. A subcentimeter sclerotic focus seen in body most likely a benign bone island considering patient's demographics. Other: None. IMPRESSION: 1. No CT evidence of acute abnormality in the abdomen and pelvis. 2. Mild splenomegaly. 3. Several subcentimeter nonobstructing left renal calculi measuring up to 3 mm. No hydronephrosis or hydroureter. Assessment/Plan Assessment/Plan Intractable abdominal pain Nephrolithiasis Intractable vomiting Leukocytosis, unspecified Plan 1. Admit to med surge unit 2. Breathing treatment 3. Pain control management 4. IV antibiotic management 5. Management of fluids and electrolytes 6. Consultation for hospitalist 7. Diagnostic test abdomen/pelvis CT 8. DVT prophylaxis-on SCDs 9. Repeat labs CBC, CMP in a.m. 10. Continue with current medical management 11. Treatment plan discussed with patient and RN. Patient verbalized understanding. Plan discussed with: Patient, Other (RN) My Orders Orders - BLAKE HUMPHREY DNP Procedure Category Date Status Time Ceftriaxone 1gm/50ml PHA 10/03/24 In Process D5w (Rocephin) 09:00 Allergies KATHY 10/02/24 In Process 20:29 Code Status CODE 10/02/24 Transmitted 20:29 Sodium Chloride 0.9% PHA 10/02/24 In Process 20:30 Oxygen Per Hour RT 10/02/24 Transmitted 20:29 Hydrocodone-Acet PHA 10/02/24 In Process 5/325mg Tab ([place] 20:30 Ondansetron Hcl PHA 10/02/24 In Process (Zofran) 20:30 Docusate Sodium PHA 10/02/24 In Process Capsule (Colace 20:30 Complete Blood Count LAB 10/03/24 Verified 04:00 Comprehensive LAB 10/03/24 Verified Metabolic Panel 04:00 Condition: Serious KATHY 10/02/24 In Process 20:29 Acetaminophen Tablet PHA 10/02/24 In Process (Tylenol Tablet) 20:30 Clear Liq Diet DIET 10/03/24 Transmitted Breakfast Bedrest With Bathroom KATHY 10/02/24 In Process Privileg 20:29 Morphine Sulfate PHA 10/02/24 In Process Injection 20:30 Sequential KATHY 10/02/24 In Process Compression Device Problem List: (1) Intractable abdominal pain (2) Nephrolithiasis (3) Intractable vomiting (4) Leukocytosis, unspecified Date of Service: Oct 02, 2024 Billing Provider: BLAKE HUMPHREY DNP Common Visit Codes: [id number] INP/OBS CARE (HIGH) BLAKE HUMPHREY DNP Oct 02, 2024 21:43
[2024-10-02] MEDS ORDERED: NITROGLYCERIN 0.4 MG SL TAB SL PRN (21:45)
[2024-10-02 22:00] VITALS: BP 115/69; PULSE 92; RESP 17; TEMP 98; O2SAT 98
[2024-10-02 23:00] VITALS: BP 115/69; PULSE 92; RESP 17; TEMP 98; O2SAT 98
[2024-10-02] MEDS: SODIUM CHLORIDE 0.9% 1,000 ML IV SCH (23:18)
[2024-10-02 23:46] VITALS: BP 115/69; PULSE 92; RESP 17; TEMP 98; O2SAT 98
[2024-10-03] VITALS (7 sets, daily range): BP systolic 101–118; BP diastolic 46–76; PULSE 65–83; RESP 18; TEMP 98–98.7; O2SAT 96–100
[2024-10-03] MEDS: HYDROcodone-ACET 5/325MG TAB PO PRN (00:13)
[2024-10-03] MEDS: ONDANSETRON HCL 4 MG/2 ML VIAL IV PRN (04:53)
[2024-10-03 07:42] LABS: Basophils # (auto) 0.1 10 ^3/uL (0-0.2); Basophils % (auto) 0.6 % (0.0-2.0); Eosinophils # (auto) 0.1 10 ^3/uL (0-0.8); Eosinophils % (auto) 0.7 % (0.0-7.0); Hematocrit 34.8 % (36.0-46.0); Hemoglobin 11.2 g/dL (12.2-16.2); Lymphocytes # (auto) 2.2 10 ^3/uL (0.4-5.4); Lymphocytes % (auto) 25.6 % (10.0-50.0); Mean Corpuscular Hemoglobin 18.4 pg (28.0-32.0); Mean Corpuscular Hgb Conc. 32.3 g/dL (32.0-36.0); Mean Corpuscular Volume 57.2 fL (80.0-100.0); Monocytes # (auto) 0.4 10 ^3/uL (0-1.3); Monocytes % (auto) 4.5 % (0.0-12.0); Neutrophils # (auto) 5.8 10 ^3/uL (1.6-8.6); Neutrophils % (auto) 68.6 % (37.0-80.0); Nucleated Red Blood Cells % 0.1 %; Platelet Count (auto) 264 10^3/uL (140-450); Red Blood Cells 6.08 10^6/uL (4.0-5.20); Red Cell Distribution Width 18.8 % (11.8-14.3); White Blood Cell 8.4 10^3/uL (4.4-10.8)
[2024-10-03 08:05] LABS: Alanine Aminotransferase 14 U/L (7-40); Albumin 4.2 g/dL (3.2-4.8); Alkaline Phosphatase 100 U/L (46-116); Anion Gap 9 (5-15); BUN/Creatinine Ratio 19.7 (10.0-20.0); Bilirubin, Total 0.8 mg/dL (0.2-1.0); Blood Urea Nitrogen 13 mg/dL (9-23); Calcium 9.5 mg/dL (8.7-10.4); Carbon Dioxide 21 mmol/L (20-31); Chloride 106 mmol/L (98-107); Glucose 101 mg/dL (74-106); Potassium 3.7 mmol/L (3.5-5.1); Total Protein 6.9 g/dL (5.7-8.2)
[2024-10-03 08:06] LABS: Aspartate Aminotransferase 12 U/L (13-40); Sodium 136 mmol/L (136-145)
[2024-10-03 08:20] LABS: Hypochromia Moderate; Ovalocytes FEW
[2024-10-03 08:21] LABS: Anisocytosis Slight; Platelet Estimate Adequate
--- NOTE | 2024-10-03 12:01 | DVHINCON2 ---
Date of service: Oct 03, 2024 Referring Physician Hospitalist Reason for Consultation Left flank pain History of Present Illness 33y F who presents to the ED for chief complaint of flank pain. Pt states she has been having L sided flank pain for the past few weeks. Pt states the pain is constant, rating the pain 6/10, constant, radiating to the L side of the abdomen, with no associated exacerbating or relieving factors. Pt has been having associated nausea, diarrhea, and hematuria but otherwise denies fever, cough, chills, dysuria, or vomiting. Pt states she was also recently diagnosed with enlarged liver and spleen but states no cause has been found for her symptoms. Pt otherwise Reviewed notes: Nurses Notes Allergies: Coded Allergies: Shellfish Allergy (Verified Allergy, Intermediate, 10/02/24) Home Meds Active Scripts Ondansetron (Zofran) 4 Mg Tab, 4 MG PO Q4HPRN PRN, #30 TAB Prov:TANGELA THOMAS 12/02/21 Ibuprofen (Ibuprofen) 800 Mg Tab, 800 MG PO TID PRN for 15 Days, #40 TAB Prov:TANGELA THOMAS 12/02/21 Hydrocodone-Acetaminophen (Hydrocodone Bitartrate/AC 5-325 mg) 1 Tab Tab, 1 TAB PO Q6HPRN PRN for 4 Days, #16 TAB Prov:TANGELA THOMAS 12/02/21 Information Source: Patient Mode of Arrival: Ambulatory Brought in by: self Severity: Moderate Inability to void: None Timing: Weeks Duration: Since onset Prehospital treatment: None Onset: Spontaneous Symptoms: Hematuria History of: None Location: (L)Flank Modifying factors: None associated signs and symptoms: Nausea, Flank Pain Past Medical History Denies Past Surgical History 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 Allergies: Coded Allergies: Shellfish Allergy (Verified Allergy, Intermediate, 10/02/24) Home Meds Active Scripts Hydrocodone-Acetaminophen (Hydrocodone Bitartrate/AC 5-325 mg) 1 Tab Tab, 1 TAB PO TIDPRN PRN for 6 Days, #18 TAB 0 Refills Prov:CARLY LYNNE MD 10/03/24 Misc. Devices (Strainer/Stainless Steel) 1 Mis Mis, MIS XX, #1 Prov:CARLY LYNNE MD 10/03/24 Tamsulosin Hcl (Flomax) 0.4 Mg Cap, 1 CAP PO DAILY, #30 CAP 0 Refills Prov:CARLY LYNNE MD 10/03/24 Ondansetron (Zofran) 4 Mg Tab, 4 MG PO Q4HPRN PRN, #30 TAB Prov:TANGELA THOMAS 12/02/21 Ibuprofen (Ibuprofen) 800 Mg Tab, 800 MG PO TID PRN for 15 Days, #40 TAB Prov:TANGELA THOMAS 12/02/21 Hydrocodone-Acetaminophen (Hydrocodone Bitartrate/AC 5-325 mg) 1 Tab Tab, 1 TAB PO Q6HPRN PRN for 4 Days, #16 TAB Prov:TANGELA THOMAS 12/02/21 Current Medications Current Medications Medications (Trade) Dose Ordered Sig/Ingrid Route PRN Reason Start Time Stop Time Status Last Admin Ceftriaxone Sodium 50 ml @ 100 mls/hr DAILY@09 IV 10/03/24 09:00 Sodium Chloride 1,000 ml @ 100 mls/hr Q10H IV 10/02/24 20:30 10/02/24 23:18 Acetaminophen/ Hydrocodone Bitart ([place] 5/325MG Tab) 1 tab Q4HP PRN PO MODERATE PAIN (4-6 PAIN SCALE) 10/02/24 20:30 10/03/24 00:13 Ondansetron HCl (Zofran) 4 mg Q4HP PRN IV NAUSEA / VOMITING 10/02/24 20:30 10/03/24 04:53 Docusate Sodium (Colace Capsule) 100 mg BIDPRN PRN PO FOR CONSTIPATION 10/02/24 20:30 Acetaminophen (Tylenol Tablet) 650 mg Q6HP PRN PO PAIN SCALE 1-3 OR TEMP>100.4 10/02/24 20:30 Morphine Sulfate 2 mg Q4HPRN PRN IV SEVERE PAIN (7-10 PAIN SCALE) 10/02/24 20:30 Nitroglycerin (Ntrostat Sublingual) 0.4 mg Q5MINP PRN SL FOR CHEST PAIN 10/02/24 21:45 Morphine Sulfate 2 mg Q30M PRN IV FOR CHEST PAIN 10/02/24 21:45 Review of Systems Constitutional: denies: chills, diaphoresis, fatigue, fever, malaise, sweats, weakness, others EENTM: denies: blurred vision, double vision, ear bleeding, ear discharge, ear drainage, ear pain, ear ringing, eye pain, eye redness, hearing loss, mouth pain, mouth swelling, nasal discharge, nose bleeding, nose congestion, nose pain, photophobia, tearing, throat pain, throat swelling, voice changes, others Respiratory: denies: cough, hemoptysis, orthopnea, SOB at rest, shortness of breath, SOB with excertion, stridor, wheezing, others Cardiovascular: denies: chest pain, dizzy spells, diaphoresis, Dyspnea on exertion, edema, irregular heart beat, left arm pain, lightheadedness, palpitations, PND, syncope, others Gastrointestinal: reports: diarrhea, nausea; denies: abdomen distended, abdominal pain, blood streaked bowels, constipated, dysphagia, difficulty swallowing, hematemesis, melena, poor appetite, poor fluid intake, rectal bleeding, rectal pain, vomiting, others Genitourinary: reports: flank pain, hematuria; denies: abnormal vagina bleeding, burning, dyspareunia, dysuria, frequency, incontinence, pain, , vagina discharge, urgency, others Neurological: denies: dizziness, fainting, headache, left sided numbness, left sided weakness, numbness, paresthesia, pre-existing deficit, right sided numbness, right sided weakness, seizure, speech problems, tingling, tremors, weakness, others Musculoskeletal: denies: back pain, gout, joint pain, joint swelling, muscle pain, muscle stiffness, neck pain, others Integumetry: denies: bruises, change in color, change in hair/nails, dryness, laceration, lesions, lumps, rash, wounds, others Allergic/Immunocompromised: denies: Difficulty Healing, Frequent Infections, Hives, Itching, others Hematologic/Lymphatic: denies: anemia, blood clots, easy bleeding, easy b ruising, swollen glands, others Endocrine: denies: excessive hunger, excessive sweating, excessive thirst, excessive urination, flushing, intolerance to cold, intolerance to heat, unexplained weight gain, unexplained weight loss, others Psychiatric: denies: anxiety, bipolar disorder, depression, hopeless, panic disorder, schizophrenia, sleepless, suicidal, others All Other Systems: Reviewed and Negative Vital Signs Vital Signs Date Time Temp Pulse Resp B/P (MAP) Pulse Ox O2 Delivery O2 Flow Rate FiO2 10/03/24 09:00 98.0 83 18 118/65 (82) 99 98.0 10/02/24 23:00 Room Air* 0 21 Physical Exam General Appearance: Moderate Distress HEENT: Normal ENT Inspection, Pharynx Normal, TMs Normal Neck: Full Range of Motion, Non-Tender, Normal, Normal Inspection Respiratory: Chest Non-Tender, Lungs Clear, No Accessory Muscle Use, No Respiratory Distress, Normal Breath Sounds Cardiovascular: No Edema, No JVD, No Murmur, No Gallop, Normal Peripheral Pulses, Regular Rate/Rhythm Breast Exam: Deferred Gastrointestinal: No Organomegaly, Non Tender, No Pulsatile Mass, Normal Bowel Sounds, Soft Genitalia: Deferred Pelvic: Deferred Rectal: Deferred Extremities: No calf tenderness, Normal capillary refill, Normal inspection, Normal range of motion, Non-tender, No pedal edema Musculoskeletal : Location: Left Extremity Location: Back Apperance: Tenderness: Moderate Neurologic: Alert, gut cleaner II-XII nml as Tested, No Motor Deficits, Normal Affect, Normal Mood, No Sensory Deficits Cerebellar Function: Normal Reflexes: Normal Skin: Dry, Normal Color, Warm Lymphatic: No Adenopathy Labs/Diagnostic Data Labs Test 10/03/24 07:10 10/02/24 19:00 10/02/24 18:59 Range/Units White Blood Count 8.4 # 4.4-10.8 10^3/uL Red Blood Count 6.08 H 4.0-5.20 10^6/uL Hemoglobin 11.2 L 12.2-16.2 g/dL Hematocrit 34.8 #L 36.0-46.0 % Mean Corpuscular Volume 57.2 L 80.0-100.0 fL Mean Corpuscular Hemoglobin 18.4 L 28.0-32.0 pg Mean Corpuscular Hemoglobin Concent 32.3 32.0-36.0 g/dL Red Cell Distribution Width 18.8 H 11.8-14.3 % Platelet Count 264 140-450 10^3/uL Mean Platelet Volume 8.1 6.9-10.8 fL Neutrophils (%) (Auto) 68.6 37.0-80.0 % Lymphocytes (%) (Auto) 25.6 10.0-50.0 % Monocytes (%) (Auto) 4.5 0.0-12.0 % Eosinophils (%) (Auto) 0.7 0.0-7.0 % Basophils (%) (Auto) 0.6 0.0-2.0 % Neutrophils # (Auto) 5.8 1.6-8.6 10 ^3/uL Lymphocytes # (Auto) 2.2 0.4-5.4 10 ^3/uL Monocytes # (Auto) 0.4 0-1.3 10 ^3/uL Eosinophils # (Auto) 0.1 0-0.8 10 ^3/uL Basophils # (Auto) 0.1 0-0.2 10 ^3/uL Nucleated Red Blood Cells 0.1 % Platelet Estimate Adequate Hypochromasia (manual) Moderate Anisocytosis (manual) Slight Microcytosis Marked Ovalocytes Few Sodium Level 136 136-145 mmol/L Potassium Level 3.7 3.5-5.1 mmol/L Chloride Level 106 98-107 mmol/L Carbon Dioxide Level 21 20-31 mmol/L Anion Gap 9 5-15 Blood Urea Nitrogen 13 9-23 mg/dL Creatinine 0.66 0.550-1.02 mg/dL Glomerular Filtration Rate Calc 118 >90 mL/min BUN/Creatinine Ratio 19.7 10.0-20.0 Serum Glucose 101 74-106 mg/dL Calcium Level 9.5 8.7-10.4 mg/dL Total Bilirubin 0.8 0.2-1.0 mg/dL Aspartate Amino Transferase (AST) 12 L 13-40 U/L Alanine Aminotransferase (ALT) 14 7-40 U/L Alkaline Phosphatase 100 46-116 U/L Total Protein 6.9 5.7-8.2 g/dL Albumin 4.2 3.2-4.8 g/dL Prothrombin Time 10.2 9.3-11.8 sec Prothrombin Time INR 0.96 0.9-1.15 Activated Partial Thromboplast Time 29.2 24.5-34.5 SEC POC Glucose 90 70-106 mg/dl Lipase 40 12-53 U/L Urine Color Light-yellow Yellow Urine Clarity Clear Clear Urine pH 5.5 5.0-9.0 Urine Specific [place] 1.013 1.001-1.035 Urine Protein Negative Negative Urine Ketones Negative Negative Urine Blood 1+ H Negative /uL Urine Nitrite Negative Negative Urine Bilirubin Negative Negative Urine Urobilinogen Normal Negative mg/dL Urine Leukocyte Esterase Negative Negative /uL Urine RBC 1 0 - 4 /hpf Urine WBC <1 0 - 5 /hpf Urine Squamous Epithelial Cells Few <5 /hpf Urine Bacteria None seen None Seen /hpf Urine Glucose Normal Normal mg/dL PATIENT: ALEXA WEBSTER ACCT: [id number] UNIT: [id number] : 1990 LOC: ER ROOM / BED: / AGE / SEX: 33 / F ADM STATUS: REG ER SERVICE 183 ORDERING PHYSICIAN: SONIA ROMEO MD PROCEDURE(s): ABPL - CT AB PEL WO CON-NO ORAL OR IV REASON: left flank pain ORDER NUMBER(s): [id number], ACCESSION NUMBER(s): [id number] Procedure: CT CT AB PEL WO CON-NO ORAL OR IV 10/02/2024 07:03 PM Indication: left flank pain Comparison Study: None available at time of dictation. Technique: Axial images were obtained and reformatted in coronal and sagittal planes. All CT scans at this medical facility are performed using dose modulation techniques as appropriate to a performed exam including the following: Automated exposure control was utilized; adjustment of the MA and/or KV according to patient size; and use of iterative reconstruction technique. CT Dose: CTDI volume is 22 mGy. Dose-length product is 1093 mGy*cm FINDINGS: Lower Chest: Unremarkable. Hepatobiliary: Elongated left hepatic lobe. No calcified gallstones. No intrahepatic or extrahepatic ductal dilatation. Spleen: 14.5 cm in AP. Pancreas: Unremarkable. Adrenal Glands: Unremarkable. tract: The kidneys are normal in size bilaterally without hydronephrosis . 2 subcentimeter calculi are seen in the left kidney measuring up to 3 mm. The urinary bladder is unremarkable. GI tract: The stomach is grossly normal in appearance. No evidence of small bowel obstruction. The large bowel is unremarkable. The appendix is normal. Lymphatics: No mesenteric, retroperitoneal or periportal lymphadenopathy. Vasculature: The abdominal aorta is normal in in caliber. Pelvic Organs: Unremarkable Bones/soft tissues: No acute osseous abnormality. A small fat-containing umbilical hernia noted. Mild chronic appearing anterior compression deformities of several lower thoracic vertebrae noted with less than height anteriorly without retropulsion. A subcentimeter sclerotic focus seen in body most likely a benign bone island considering patient's demographics. Other: None. IMPRESSION: 1. No CT evidence of acute abnormality in the abdomen and pelvis. 2. Mild splenomegaly. 3. Several subcentimeter nonobstructing left renal calculi measuring up to 3 mm. No hydronephrosis or hydroureter. ATED BY: TANGELA HAQ MD DICTATED DATE/TIME: 10/02/241931 SIGNED BY: TANGELA HAQ MD SIGNED DATE/TIME: 10/02/241931 CC: Assessment Left nephrolithiasis- 3 mm Microhematuria Left flank pain Plan/Recommendation Pain management LEFT ESWL on Sunday10/06/24 as inpatient, as patient is having pain and wants to stay for definitive management. Plan discussed with: Patient, Other FANG ALVAREZ MD Oct 03, 2024 12:01
[2024-10-03] MEDS ORDERED: [UNRECOGNIZED DRUG - CODE] XX (13:49)
[2024-10-03] MEDS ORDERED: HYDR-4902 PO (13:49)
[2024-10-03] MEDS ORDERED: TAMS-35 PO (13:49)
--- NOTE | 2024-10-03 13:58 | DVHDS2 ---
Discharge Summary Date of Admission Oct 02, 2024 at 21:42 Date of Discharge: Oct 03, 2024 Labs/Diagnostic Data: Laboratory Results Test 10/03/24 07:10 10/02/24 19:00 10/02/24 18:59 White Blood Count 8.4 10^3/uL (4.4-10.8) Red Blood Count 6.08 10^6/uL (4.0-5.20) Hemoglobin 11.2 g/dL (12.2-16.2) Hematocrit 34.8 % (36.0-46.0) Mean Corpuscular Volume 57.2 fL (80.0-100.0) Mean Corpuscular Hemoglobin 18.4 pg (28.0-32.0) Mean Corpuscular Hemoglobin Concent 32.3 g/dL (32.0-36.0) Red Cell Distribution Width 18.8 % (11.8-14.3) Platelet Count 264 10^3/uL (140-450) Mean Platelet Volume 8.1 fL (6.9-10.8) Neutrophils (%) (Auto) 68.6 % (37.0-80.0) Lymphocytes (%) (Auto) 25.6 % (10.0-50.0) Monocytes (%) (Auto) 4.5 % (0.0-12.0) Eosinophils (%) (Auto) 0.7 % (0.0-7.0) Basophils (%) (Auto) 0.6 % (0.0-2.0) Neutrophils # (Auto) 5.8 10 ^3/uL (1.6-8.6) Lymphocytes # (Auto) 2.2 10 ^3/uL (0.4-5.4) Monocytes # (Auto) 0.4 10 ^3/uL (0-1.3) Eosinophils # (Auto) 0.1 10 ^3/uL (0-0.8) Basophils # (Auto) 0.1 10 ^3/uL (0-0.2) Nucleated Red Blood Cells 0.1 % Platelet Estimate Adequate Hypochromasia (manual) Moderate Anisocytosis (manual) Slight Microcytosis Marked Ovalocytes Few Sodium Level 136 mmol/L (136-145) Potassium Level 3.7 mmol/L (3.5-5.1) Chloride Level 106 mmol/L (98-107) Carbon Dioxide Level 21 mmol/L (20-31) Anion Gap 9 (5-15) Blood Urea Nitrogen 13 mg/dL (9-23) Creatinine 0.66 mg/dL (0.550-1.02) Glomerular Filtration Rate Calc 118 mL/min (>90) BUN/Creatinine Ratio 19.7 (10.0-20.0) Serum Glucose 101 mg/dL (74-106) Calcium Level 9.5 mg/dL (8.7-10.4) Total Bilirubin 0.8 mg/dL (0.2-1.0) Aspartate Amino Transferase (AST) 12 U/L (13-40) Alanine Aminotransferase (ALT) 14 U/L (7-40) Alkaline Phosphatase 100 U/L (46-116) Total Protein 6.9 g/dL (5.7-8.2) Albumin 4.2 g/dL (3.2-4.8) Prothrombin Time 10.2 sec (9.3-11.8) Prothrombin Time INR 0.96 (0.9-1.15) Activated Partial Thromboplast Time 29.2 SEC (24.5-34.5) POC Glucose 90 mg/dl (70-106) Lipase 40 U/L (12-53) Urine Color Light-yellow (Yellow) Urine Clarity Clear (Clear) Urine pH 5.5 (5.0-9.0) Urine Specific [place] 1.013 (1.001-1.035) Urine Protein Negative (Negative) Urine Ketones Negative (Negative) Urine Blood 1+ /uL (Negative) Urine Nitrite Negative (Negative) Urine Bilirubin Negative (Negative) Urine Urobilinogen Normal mg/dL (Negative) Urine Leukocyte Esterase Negative /uL (Negative) Urine RBC 1 /hpf (0 - 4) Urine WBC <1 /hpf (0 - 5) Urine Squamous Epithelial Cells Few /hpf (<5) Urine Bacteria None seen /hpf (None Seen) Urine Glucose Normal mg/dL (Normal) Other Laboratory Tests 10/03/24 07:10 Brief Hx & Hospital Course: hpi: 33-year-old female who denies past medical history presented to [facility] ED with complaint of flank pain. Patient reports she has been having left side flank pain for the past 2-3 weeks, radiating to the left side of the abdomen rating 6/10 scale, associated nausea, diarrhea, hematuria, getting worse that prompted this visit. Patient reports she was also recently diagnosed with enlarged liver and spleen but states no cause has been found for her symptoms. course: On admit patient's labs show leukocytosis 14.9, neutrophilia and absolute 10.2 high. Also has macro sitting anemia, hemoglobin stable. UA SG 1.013, blood +1, all else negative/benign. Unconcerning for UTI, patient was also asymptomatic no dysuria. Vital signs stable, on room air,. No CVA tenderness. No abdominal tenderness. CT abdomen pelvis shows mild splenomegaly, several subcentimeter nonobstructing left renal calculi up to 3 mm. No hydronephrosis or hydroureter.. No acute abdomen process on CT. Urology evaluated the patient, safe for outpatient conservative plan. Patient is safe for discharge. As per plan below. Discharge diagnosis: Left nephrolithiasis, nonobstructing; acute intractable abdominal pain, resolving; intractable nausea, resolved; p.o. intolerance, resolved; acute abdomen ruled out; leukocytosis, resolved; neutrophilia, resolved; splenomegaly on CT; Discharge plan;: -Continue Flomax 0.4 mg daily X 30 days (until renal stone passes) --use as-needed Zofran sublingual for nausea -For pain, use [id number] Tylenol, then ibuprofen, then [place] 5 as needed -aggressive hydration -Strain urine, collected urine to be taken to PCP source stone analysis. -follow up with PCP to review discharge -continue other home medications not discussed above.: Visitation and planning required 35 minutes Condition at Discharge: Fair Final Diagnosis/Problems List Left nephrolithiasis, nonobstructing; acute intractable abdominal pain, resolving; intractable nausea, resolved; p.o. intolerance, resolved; acute abdomen ruled out; leukocytosis, resolved; neutrophilia, resolved; splenomegaly on CT; Discharge Disposition: Home Discharge Instruct/Medications Diet: Regular Activity: No Restrictions, As Tolerated Follow Up/Referral: pcp Medications: below Discharge Statement: "Patient was advised to return to the ER or call 911 if any headaches, dizziness, shortness of breath, chest pain, abdominal pain, bleeding, fevers, or worsening of medical condition. Patient was counseled about treatment plan, medications, possible side effects, patientverbalized understanding. All questions were answered to the best of my ability. This discharge took greater then 30 minutes in planning, reviewing documentation, counseling the patient, and discussing with other team members." ASSESSMENT ASSESSMENT Assessment Left nephrolithiasis, nonobstructing; acute intractable abdominal pain, resolving; intractable nausea, resolved; p.o. intolerance, resolved; acute abdomen ruled out; leukocytosis, resolved; neutrophilia, resolved; splenomegaly on CT; Date of Service: Oct 03, 2024 Billing Provider: CARLY LYNNE MD Common Visit Codes: 51754-ACN/OBS DISCH DAY >30min CARLY LYNNE MD Oct 03, 2024 13:58
[2024-10-03] MEDS: cefTRIAXone 1GM/50ML D5W 50 ML IV SCH (14:00)
--- NOTE | 2024-10-03 14:38 | DVHPN2 ---
Progress Note - Dictate Date Seen: Oct 03, 2024 Medical Necessity Reason Pt with a Central, PICC or Fol: No vital signs Vital Sign Date Time Temp Pulse Resp B/P (MAP) Pulse Ox O2 Delivery O2 Flow Rate FiO2 10/03/24 13:00 98.4 68 18 105/46 (65) 100 98.4 10/02/24 23:00 Room Air* 0 21 Total Intake and Output 10/02/24 10/02/24 10/03/24 15:00 23:00 07:00 Intake Total 1050 ml 250 ml Balance 1050 ml 250 ml medications Current Medications Medications Dose Ordered Sig/Ingrid Route Start Time Stop Time Status Last Admin Dose Admin Ceftriaxone Sodium 50 ml @ 100 mls/hr DAILY@09 IV 10/03/24 09:00 10/03/24 14:00 100 MLS/HR Sodium Chloride 1,000 ml @ 100 mls/hr Q10H IV 10/02/24 20:30 10/02/24 23:18 100 MLS/HR Acetaminophen/ Hydrocodone Bitart 1 tab Q4HP PRN PO 10/02/24 20:30 10/03/24 14:11 1 TAB Ondansetron HCl 4 mg Q4HP PRN IV 10/02/24 20:30 10/03/24 04:53 4 MG Docusate Sodium 100 mg BIDPRN PRN PO 10/02/24 20:30 Acetaminophen 650 mg Q6HP PRN PO 10/02/24 20:30 Morphine Sulfate 2 mg Q4HPRN PRN IV 10/02/24 20:30 Nitroglycerin 0.4 mg Q5MINP PRN SL 10/02/24 21:45 Morphine Sulfate 2 mg Q30M PRN IV 10/02/24 21:45 objective General Appearance: alert, no distress HEENT: EOMI, PERRLA, normal external inspect of ears, no icterus, no nasal drainage Neck: no carotid bruit, no jugular venous distention (JVD), no lymphadenopathy Chest: normal thorax Respiratory: clear to auscultation, normal air movement Cardiovascular: regular rate and rhythm, no diastolic murmur, no jugular venous distention (JVD), no rub, no systolic murmur Abdominal: soft, no hepatomegaly, no mass, no splenomegaly, no tenderness Musculoskeletal: no joint tenderness, no swelling Extremities: normal pulses, no calf tenderness, no clubbing, no cyanosis, no edema Skin: no bruising, no jaundice, no rash Neurological: alert, No focal deficit laboratory and microbiology Laboratory Tests 10/03/24 07:10 Test 10/03/24 07:10 Range/Units Serum Glucose 101 74-106 mg/dL Problem List Left flank pain Urology consult, medication, monitoring Nephrolithiasis Urology consult ,IV Fluids, as needed pain medications Morbid obesity Diet, exercise. Assessment/Plan Subjective Patient admitted for left flank pain. Objective Patient has flank pain. Patient has nephrolithiasis. Urology consulted. Scheduled for lithotripsy in AM. Plan Continue IV hydration and as needed pain medication. Plan for lithotripsy. Plan discussed with: Patient, Other SHILPI VEGA NP Oct 03, 2024 14:38
[2024-10-04 05:00] VITALS: BP 110/47; PULSE 71; RESP 18; TEMP 97.8; O2SAT 94
[2024-10-04 09:00] VITALS: BP 102/51; PULSE 74; RESP 18; TEMP 98.2; O2SAT 99
[2024-10-04 13:00] VITALS: BP 100/53; PULSE 71; RESP 18; TEMP 98.4; O2SAT 98
--- NOTE | 2024-10-04 14:26 | DVHPN2 ---
Progress Note - Dictate Date Seen: Oct 04, 2024 Medical Necessity Reason Pt with a Central, PICC or Fol: No vital signs Vital Sign Date Time Temp Pulse Resp B/P (MAP) Pulse Ox O2 Delivery O2 Flow Rate FiO2 10/04/24 13:00 98.4 71 18 100/53 (69) 98 98.4 10/04/24 08:00 Room Air* 0 21 Total Intake and Output 10/03/24 10/03/24 10/04/24 15:00 23:00 07:00 Intake Total 530 ml 1760 ml 1430 ml Balance 530 ml 1760 ml 1430 ml medications Current Medications Medications Dose Ordered Sig/Ingrid Route Start Time Stop Time Status Last Admin Dose Admin Ceftriaxone Sodium 50 ml @ 100 mls/hr DAILY@09 IV 10/03/24 09:00 10/04/24 08:56 100 MLS/HR Sodium Chloride 1,000 ml @ 100 mls/hr Q10H IV 10/02/24 20:30 10/04/24 12:30 100 MLS/HR Acetaminophen/ Hydrocodone Bitart 1 tab Q4HP PRN PO 10/02/24 20:30 10/04/24 14:12 1 TAB Ondansetron HCl 4 mg Q4HP PRN IV 10/02/24 20:30 10/03/24 04:53 4 MG Docusate Sodium 100 mg BIDPRN PRN PO 10/02/24 20:30 Acetaminophen 650 mg Q6HP PRN PO 10/02/24 20:30 Morphine Sulfate 2 mg Q4HPRN PRN IV 10/02/24 20:30 Nitroglycerin 0.4 mg Q5MINP PRN SL 10/02/24 21:45 Morphine Sulfate 2 mg Q30M PRN IV 10/02/24 21:45 objective General Appearance: alert, no distress HEENT: EOMI, PERRLA, normal external inspect of ears, no icterus, no nasal drainage Neck: no carotid bruit, no jugular venous distention (JVD), no lymphadenopathy Chest: normal thorax Respiratory: clear to auscultation, normal air movement Cardiovascular: regular rate and rhythm, no diastolic murmur, no jugular venous distention (JVD), no rub, no systolic murmur Abdominal: soft, no hepatomegaly, no mass, no splenomegaly, no tenderness Musculoskeletal: no joint tenderness, no swelling Extremities: normal pulses, no calf tenderness, no clubbing, no cyanosis, no edema Skin: no bruising, no jaundice, no rash Neurological: alert, No focal deficit laboratory and microbiology Laboratory Tests 10/03/24 07:10 Test 10/03/24 07:10 Range/Units Serum Glucose 101 74-106 mg/dL Problem List Left flank pain Urology consult, medication, monitoring Nephrolithiasis Urology consult ,IV Fluids, as needed pain medications Morbid obesity Diet, exercise. Assessment/Plan Subjective Patient is awake and alert. Objective Patient was admitted for intractable abdominal pain. Pain is now more controlled and pain medication is needed intermittently. Pain is still persistent. Patient was seen by urology. Patient does have a kidney stone and is scheduled for a lithotripsy on Sunday. Plan: Continue current treatment. Plan for lithotripsy by Dr. Herb Estevez on Sunday. Continue pain medication as needed. Plan discussed with: Patient, Other SHILPI VEGA NP Oct 04, 2024 14:26
[2024-10-04 17:00] VITALS: BP 94/49; PULSE 70; RESP 18; TEMP 98.5; O2SAT 97
[2024-10-04 21:00] VITALS: BP 128/79; PULSE 71; RESP 20; TEMP 98.3; O2SAT 98
[2024-10-05 05:00] VITALS: BP 116/69; PULSE 94; RESP 18; TEMP 98.5; O2SAT 97
[2024-10-05 09:00] VITALS: BP 110/54; PULSE 74; RESP 20; TEMP 98.1; O2SAT 97
[2024-10-05 13:00] VITALS: BP 105/52; PULSE 65; RESP 18; TEMP 98.2; O2SAT 100
--- NOTE | 2024-10-05 15:49 | DVHPN2 ---
Progress Note - Dictate Date Seen: Oct 05, 2024 Medical Necessity Reason Pt with a Central, PICC or Fol: No vital signs Vital Sign Date Time Temp Pulse Resp B/P (MAP) Pulse Ox O2 Delivery O2 Flow Rate FiO2 10/05/24 13:00 98.2 65 18 105/52 (69) 100 98.2 10/05/24 08:00 Room Air* 0 21 Total Intake and Output 10/04/24 10/04/24 10/05/24 15:00 23:00 07:00 Intake Total 530 ml 1760 ml 0 ml Balance 530 ml 1760 ml 0 ml medications Current Medications Medications Dose Ordered Sig/Ingrid Route Start Time Stop Time Status Last Admin Dose Admin Sodium Chloride 1,000 ml @ 100 mls/hr Q10H IV 10/02/24 20:30 10/05/24 09:26 100 MLS/HR Acetaminophen/ Hydrocodone Bitart 1 tab Q4HP PRN PO 10/02/24 20:30 10/05/24 09:25 1 TAB Ondansetron HCl 4 mg Q4HP PRN IV 10/02/24 20:30 10/03/24 04:53 4 MG Docusate Sodium 100 mg BIDPRN PRN PO 10/02/24 20:30 Acetaminophen 650 mg Q6HP PRN PO 10/02/24 20:30 Morphine Sulfate 2 mg Q4HPRN PRN IV 10/02/24 20:30 Nitroglycerin 0.4 mg Q5MINP PRN SL 10/02/24 21:45 Morphine Sulfate 2 mg Q30M PRN IV 10/02/24 21:45 objective General Appearance: alert, no distress HEENT: EOMI, PERRLA, normal external inspect of ears, no icterus, no nasal drainage Neck: no carotid bruit, no jugular venous distention (JVD), no lymphadenopathy Chest: normal thorax Respiratory: clear to auscultation, normal air movement Cardiovascular: regular rate and rhythm, no diastolic murmur, no jugular venous distention (JVD), no rub, no systolic murmur Abdominal: soft, no hepatomegaly, no mass, no splenomegaly, no tenderness Musculoskeletal: no joint tenderness, no swelling Extremities: normal pulses, no calf tenderness, no clubbing, no cyanosis, no edema Skin: no bruising, no jaundice, no rash Neurological: alert, No focal deficit laboratory and microbiology Laboratory Tests 10/03/24 07:10 Test 10/03/24 07:10 Range/Units Serum Glucose 101 74-106 mg/dL Problem List Left flank pain Urology consult, medication, monitoring Nephrolithiasis Urology consult ,IV Fluids, as needed pain medications Morbid obesity Diet, exercise. Assessment/Plan Subjective: Patient is awake and alert. Objective: Patient is admitted for left flank pain. Patient was seen by urology. He is scheduled for lithotripsy in AM. Plan: Continue current treatment. No current new complaints at this time. Repeat labs ordered for a.m. Plan discussed with: Patient, Other SHILPI VEGA NP Oct 05, 2024 15:49
[2024-10-05 17:00] VITALS: BP 105/53; PULSE 70; RESP 17; TEMP 98.4; O2SAT 99
[2024-10-05 21:00] VITALS: BP 118/60; PULSE 77; RESP 17; TEMP 97.9; O2SAT 98
[2024-10-06] VITALS (7 sets, daily range): BP systolic 106–129; BP diastolic 63–80; PULSE 70–95; RESP 18–20; TEMP 98–98.5; O2SAT 92–100
[2024-10-06 07:00] LABS: Basophils # (auto) 0 10 ^3/uL (0-0.2); Basophils % (auto) 0.6 % (0.0-2.0); Eosinophils # (auto) 0.1 10 ^3/uL (0-0.8); Eosinophils % (auto) 1.4 % (0.0-7.0); Hematocrit 37.7 % (36.0-46.0); Lymphocytes # (auto) 2.4 10 ^3/uL (0.4-5.4); Lymphocytes % (auto) 30.4 % (10.0-50.0); Mean Corpuscular Hemoglobin 18.3 pg (28.0-32.0); Mean Corpuscular Hgb Conc. 31.8 g/dL (32.0-36.0); Mean Corpuscular Volume 57.5 fL (80.0-100.0); Monocytes # (auto) 0.4 10 ^3/uL (0-1.3); Monocytes % (auto) 5.2 % (0.0-12.0); Neutrophils # (auto) 4.9 10 ^3/uL (1.6-8.6); Neutrophils % (auto) 62.4 % (37.0-80.0); Nucleated Red Blood Cells % 0.2 %; Platelet Count (auto) 221 10^3/uL (140-450); Red Blood Cells 6.56 10^6/uL (4.0-5.20); Red Cell Distribution Width 19.4 % (11.8-14.3); White Blood Cell 7.8 10^3/uL (4.4-10.8)
[2024-10-06 07:16] LABS: Anion Gap 8 (5-15); Carbon Dioxide 24 mmol/L (20-31); Chloride 106 mmol/L (98-107); Potassium 3.8 mmol/L (3.5-5.1); Sodium 138 mmol/L (136-145)
[2024-10-06 07:17] LABS: Calcium 10.1 mg/dL (8.7-10.4)
[2024-10-06 07:22] LABS: BUN/Creatinine Ratio 8.7 (10.0-20.0); Glucose 87 mg/dL (74-106)
[2024-10-06 07:24] LABS: Blood Urea Nitrogen 6 mg/dL (9-23)
--- NOTE | 2024-10-06 12:28 | DVHPN2 ---
Progress Note - Dictate Date Seen: Oct 06, 2024 Medical Necessity Reason Pt with a Central, PICC or Fol: No vital signs Vital Sign Date Time Temp Pulse Resp B/P (MAP) Pulse Ox O2 Delivery O2 Flow Rate FiO2 10/06/24 09:00 98.0 72 20 106/69 (81) 100 98.0 10/06/24 08:00 Room Air* 0 21 Total Intake and Output 10/05/24 10/05/24 10/06/24 15:00 23:00 07:00 Intake Total 480 ml 1760 ml 320 ml Balance 480 ml 1760 ml 320 ml medications Current Medications Medications Dose Ordered Sig/Ingrid Route Start Time Stop Time Status Last Admin Dose Admin Sodium Chloride 1,000 ml @ 100 mls/hr Q10H IV 10/02/24 20:30 10/05/24 20:34 100 MLS/HR Acetaminophen/ Hydrocodone Bitart 1 tab Q4HP PRN PO 10/02/24 20:30 10/05/24 09:25 1 TAB Ondansetron HCl 4 mg Q4HP PRN IV 10/02/24 20:30 10/03/24 04:53 4 MG Docusate Sodium 100 mg BIDPRN PRN PO 10/02/24 20:30 Acetaminophen 650 mg Q6HP PRN PO 10/02/24 20:30 Morphine Sulfate 2 mg Q4HPRN PRN IV 10/02/24 20:30 Nitroglycerin 0.4 mg Q5MINP PRN SL 10/02/24 21:45 Morphine Sulfate 2 mg Q30M PRN IV 10/02/24 21:45 objective General Appearance: alert, no distress HEENT: EOMI, PERRLA, normal external inspect of ears, no icterus, no nasal drainage Neck: no carotid bruit, no jugular venous distention (JVD), no lymphadenopathy Chest: normal thorax Respiratory: clear to auscultation, normal air movement Cardiovascular: regular rate and rhythm, no diastolic murmur, no jugular venous distention (JVD), no rub, no systolic murmur Abdominal: soft, no hepatomegaly, no mass, no splenomegaly, no tenderness Musculoskeletal: no joint tenderness, no swelling Extremities: normal pulses, no calf tenderness, no clubbing, no cyanosis, no edema Skin: no bruising, no jaundice, no rash Neurological: alert, No focal deficit laboratory and microbiology Laboratory Tests 10/06/24 06:11 Test 10/06/24 06:11 Range/Units Serum Glucose 87 74-106 mg/dL Problem List Left flank pain Urology consult, medication, monitoring Nephrolithiasis Urology consult ,IV Fluids, as needed pain medications Morbid obesity Diet, exercise. Assessment/Plan Subjective Patient is awake and alert. Objective Patient is currently n.p.o. for lithotripsy scheduled today at [address] Herb Estevez. Patient was admitted for left flank pain. Patient was found to have nephrolithiasis. Labs are stable. Plan Continue current treatment. N.p.o. status. Pain medications as needed. Plan for lithotripsy this afternoon. CRISTIANO planning for tomorrow Plan discussed with: Patient, Other SHILPI VEGA NP Oct 06, 2024 12:28
[2024-10-06] MEDS ORDERED: ROCURONIUM 10MG/ML 10ML VIAL IV ONE (13:37)
[2024-10-06] MEDS: IOHEXOL 300 MG/ML 100ML BOTTLE IJ ONE (14:24)
[2024-10-06] MEDS: CIPROFLOXACIN 400MG/200ML 200 ML IV ONE (14:31)
[2024-10-06] MEDS ORDERED: MIDAZOLAM HCL 2MG/2ML 2ml VIAL (1mg/ml) ONE (15:16)
[2024-10-06] MEDS ORDERED: MORPHINE SULFATE 4 MG/ML SYR/VIAL IV PRN (15:30)
[2024-10-06] MEDS ORDERED: HYDROmorphone HCL 2 MG/ML VL/or syr IV PRN (15:30)
[2024-10-06] MEDS ORDERED: MORPHINE SULF PF 5 MG/10 ML VIAL ONE (15:45)
--- NOTE | 2024-10-06 16:10 | DVHOP2 ---
Operative Report - 2 Report Details Date: 10/06/24 Preop Diagnosis: Left flank pain Left nephrolithiasis Postop Diagnosis: Left nephrolithiasis, nonobstructing; acute intractable abdominal pain, resolving; intractable nausea, resolved; p.o. intolerance, resolved; acute abdomen ruled out; leukocytosis, resolved; neutrophilia, resolved; splenomegaly on CT; Surgeon: Fang Alvarez Anesthesiologist: MD Lulu Anesthesia: General Consent: The patient was informed of the risks and benefits of the procedure. These include but are not limited to complications of anesthesia, postoperative infection, incomplete relief of symptoms, recurrence of symptoms, damage to blood vessels, nerves and tendons, deep venous thrombosis, pulmonary embolism and possible need for repeat surgery in the future. Indications for Surgery: Patient with symptomatic 3 mm left upper pole renal lithiasis Name of Procedure Performed Extracorporeal shockwave lithotripsy Procedure Details Procedure Details: Patient was taken to the operating room and underwent general anesthesia. She was placed in supine position on the lithotripsy table and the stone was localized onto the F2 focus using IV contrast. Two thousand shockwave were delivered to the stone for fragmentation. Patient tolerated the procedure well. She was awakened and taken to recovery room in stable condition Condition Fair Disposition Home FANG ALVAREZ MD Oct 06, 2024 16:09
[2024-10-07 01:00] VITALS: BP 114/75; PULSE 79; RESP 18; TEMP 98; O2SAT 95
[2024-10-07 05:00] VITALS: BP 98/65; PULSE 70; RESP 18; TEMP 98.4; O2SAT 96
[2024-10-07 09:08] VITALS: BP 110/64; PULSE 78; RESP 18; TEMP 97.6; O2SAT 98
--- NOTE | 2024-10-07 11:26 | DVHPN2 ---
Progress Note - Dictate Date Seen: Oct 07, 2024 Medical Necessity Reason Pt with a Central, PICC or Fol: No Medical Necessity Reason POD#1 s/p Left ESWL Subjective Patient is doing well. She states she has passed some sand fragments. vital signs Vital Sign Date Time Temp Pulse Resp B/P (MAP) Pulse Ox O2 Delivery O2 Flow Rate FiO2 10/07/24 09:08 97.6 78 18 110/64 (79) 98 97.6 10/06/24 20:00 Room Air* 0 21 Total Intake and Output 10/06/24 10/06/24 10/07/24 15:00 23:00 07:00 Intake Total 175 ml 0 ml 350 ml Balance 175 ml 0 ml 350 ml medications Current Medications Medications Dose Ordered Sig/Ingrid Route Start Time Stop Time Status Last Admin Dose Admin Sodium Chloride 1,000 ml @ 100 mls/hr Q10H IV 10/02/24 20:30 10/07/24 00:30 100 MLS/HR Acetaminophen/ Hydrocodone Bitart 1 tab Q4HP PRN PO 10/02/24 20:30 10/05/24 09:25 1 TAB Ondansetron HCl 4 mg Q4HP PRN IV 10/02/24 20:30 10/03/24 04:53 4 MG Docusate Sodium 100 mg BIDPRN PRN PO 10/02/24 20:30 Acetaminophen 650 mg Q6HP PRN PO 10/02/24 20:30 Morphine Sulfate 2 mg Q4HPRN PRN IV 10/02/24 20:30 Nitroglycerin 0.4 mg Q5MINP PRN SL 10/02/24 21:45 Morphine Sulfate 2 mg Q30M PRN IV 10/02/24 21:45 laboratory and microbiology Laboratory Tests 10/06/24 06:11 Test 10/06/24 06:11 Range/Units Serum Glucose 87 74-106 mg/dL Assessment/Plan Left ESWL done. January discharge from my standpoint Plan discussed with: Patient, Other FANG ALVAREZ MD Oct 07, 2024 11:26
[2024-10-07 13:00] VITALS: BP 120/73; PULSE 77; RESP 19; TEMP 98.2; O2SAT 100
--- NOTE | 2024-10-07 13:42 | DVHDS2 ---
Discharge Summary Date of Admission Oct 02, 2024 at 21:42 Date of Discharge: Oct 07, 2024 Labs/Diagnostic Data: Laboratory Results Test 10/06/24 06:11 10/03/24 07:10 10/02/24 19:00 10/02/24 18:59 White Blood Count 7.8 10^3/uL (4.4-10.8) Red Blood Count 6.56 10^6/uL (4.0-5.20) Hemoglobin 12.0 g/dL (12.2-16.2) Hematocrit 37.7 % (36.0-46.0) Mean Corpuscular Volume 57.5 fL (80.0-100.0) Mean Corpuscular Hemoglobin 18.3 pg (28.0-32.0) Mean Corpuscular Hemoglobin Concent 31.8 g/dL (32.0-36.0) Red Cell Distribution Width 19.4 % (11.8-14.3) Platelet Count 221 10^3/uL (140-450) Mean Platelet Volume 8.1 fL (6.9-10.8) Neutrophils (%) (Auto) 62.4 % (37.0-80.0) Lymphocytes (%) (Auto) 30.4 % (10.0-50.0) Monocytes (%) (Auto) 5.2 % (0.0-12.0) Eosinophils (%) (Auto) 1.4 % (0.0-7.0) Basophils (%) (Auto) 0.6 % (0.0-2.0) Neutrophils # (Auto) 4.9 10 ^3/uL (1.6-8.6) Lymphocytes # (Auto) 2.4 10 ^3/uL (0.4-5.4) Monocytes # (Auto) 0.4 10 ^3/uL (0-1.3) Eosinophils # (Auto) 0.1 10 ^3/uL (0-0.8) Basophils # (Auto) 0 10 ^3/uL (0-0.2) Nucleated Red Blood Cells 0.2 % Sodium Level 138 mmol/L (136-145) Potassium Level 3.8 mmol/L (3.5-5.1) Chloride Level 106 mmol/L (98-107) Carbon Dioxide Level 24 mmol/L (20-31) Anion Gap 8 (5-15) Blood Urea Nitrogen 6 mg/dL (9-23) Creatinine 0.69 mg/dL (0.550-1.02) Glomerular Filtration Rate Calc 117 mL/min (>90) BUN/Creatinine Ratio 8.7 (10.0-20.0) Serum Glucose 87 mg/dL (74-106) Calcium Level 10.1 mg/dL (8.7-10.4) Beta HCG, Quantitative 0.3 mIU/mL (1.5-4.2) Platelet Estimate Adequate Hypochromasia (manual) Moderate Anisocytosis (manual) Slight Microcytosis Marked Ovalocytes Few Total Bilirubin 0.8 mg/dL (0.2-1.0) Aspartate Amino Transferase (AST) 12 U/L (13-40) Alanine Aminotransferase (ALT) 14 U/L (7-40) Alkaline Phosphatase 100 U/L (46-116) Total Protein 6.9 g/dL (5.7-8.2) Albumin 4.2 g/dL (3.2-4.8) Prothrombin Time 10.2 sec (9.3-11.8) Prothrombin Time INR 0.96 (0.9-1.15) Activated Partial Thromboplast Time 29.2 SEC (24.5-34.5) POC Glucose 90 mg/dl (70-106) Lipase 40 U/L (12-53) Urine Color Light-yellow (Yellow) Urine Clarity Clear (Clear) Urine pH 5.5 (5.0-9.0) Urine Specific [place] 1.013 (1.001-1.035) Urine Protein Negative (Negative) Urine Ketones Negative (Negative) Urine Blood 1+ /uL (Negative) Urine Nitrite Negative (Negative) Urine Bilirubin Negative (Negative) Urine Urobilinogen Normal mg/dL (Negative) Urine Leukocyte Esterase Negative /uL (Negative) Urine RBC 1 /hpf (0 - 4) Urine WBC <1 /hpf (0 - 5) Urine Squamous Epithelial Cells Few /hpf (<5) Urine Bacteria None seen /hpf (None Seen) Urine Glucose Normal mg/dL (Normal) Other Laboratory Tests 10/06/24 06:11 Brief Hx & Hospital Course: The patient is a 33-year-old female who denies past medical history presented to [facility] ED with complaint of flank pain. Patient reports she has been having left side flank pain for the past 2-3 weeks, radiating to the left side of the abdomen rating 6/10 scale, associated nausea, diarrhea, hematuria, getting worse that prompted this visit. Patient reports she was also recently diagnosed with enlarged liver and spleen but states no cause has been found for her symptoms. Patient was seen and evaluated in the ED, laboratory data shows WBC 14.9, platelets 311, sodium 137, potassium 3.6, BUN 13, creatinine 0.73, GFR 111, glucose 94, lipase 40. Abdomen/pelvis CT revealing several subcentimeter nonobstructing left renal calculi measuring up to 3 mm, mild splenomegaly, no hydronephrosis or hydroureter. On my assessment, patient denied chest pain, headache, no dizziness, no diaphoresis, no abdominal pain, no nausea at this moment, no fever, no chills. Patient was admitted for further evaluation and medical management. Patient was admitted on October 02, 2024 for left flank pain. CT imaging showed left nephrolithiasis. Patient was seen by urology. Patient is status post lithotripsy to left kidney on 10/06/2024. Patient has been passing stone fragments. Patient was cleared for discharge by urology. Pain medications were sent to pharmacy. Patient was instructed to follow-up with PCP in 1 week. The patient received proper medical treatment and medications. Vital signs, Imaging and Laboratory Work was monitored daily. All consults recommendations were followed as provided. There were no complaints or new complaints upon discharge, all questions and concerns were answered. Patient was advised to return to the ER or call 911 if any headaches, dizziness, shortness of breath, chest pain, bleeding, fevers, or worsening of medical condition. Patient/Family was counseled about treatment plan, medications, possible side effects, patient verbalized understanding. All questions were answered to the best of my ability. The patient symptoms improved and they are okay to be DC. Condition at Discharge: Stable Final Diagnosis/Problems List Left nephrolithiasis, nonobstructing; acute intractable abdominal pain,resolving; intractable nausea, resolved; p.o. intolerance, resolved; acuteabdomen ruled out; leukocytosis, resolved; neutrophilia, resolved;splenomegaly on CT; S/P left lithotripsy Discharge Disposition: Home Discharge Instruct/Medications Diet: Regular Activity: No Restrictions, As Tolerated Follow Up/Referral: pcp Medications: below Discharge Statement: "Patient was advised to return to the ER or call 911 if any headaches, dizziness, shortness of breath, chest pain, abdominal pain, bleeding, fevers, or worsening of medical condition. Patient was counseled about treatment plan, medications, possible side effects, patientverbalized understanding. All questions were answered to the best of my ability. This discharge took greater then 30 minutes in planning, reviewing documentation, counseling the patient, and discussing with other team members." ASSESSMENT ASSESSMENT Assessment Left nephrolithiasis, nonobstructing; acute intractable abdominal pain,resolving; intractable nausea, resolved; p.o. intolerance, resolved; acuteabdomen ruled out; leukocytosis, resolved; neutrophilia, resolved;splenomegaly on CT; S/P left lithotripsy SHILPI VEGA NP Oct 07, 2024 13:42
[2024-10-07] MEDS: CALCIUM CARB 500 MG CHEW TAB PO PRN (15:57)
== END 2024-10-07 16:10 | disposition home or self-care (01) | DRG 694 ==
LOC: ER 18:22 → OVERFLOW 21:42 → CENTRAL 21:43
PROVIDERS: ADMIT Nurse Practitioner; ATTEND Nurse Practitioner
PROC: 0TF4XZZ Fragmentation in Left Kidney Pelvis, External Approach (ICD-10-PCS; principal; 2024-10-06 15:30)
DX: N20.0 Calculus of kidney (principal); D72.829 Elevated white blood cell count, unspecified; E66.01 Morbid (severe) obesity due to excess calories; Z91.013 Allergy to seafood; Z68.36 Body mass index [BMI] 36.0-36.9, adult; Z79.899 Other long term (current) drug therapy
CPT/HCPCS: 36415; 74176; 80048; 80053; 81001; 82962; 83690; 84702; 85025; 85610; 85730; G0378; J1885; J2250; J2405

== ENCOUNTER → 2024-10-27 | Outpatient (CLI) | payer BC ==
[~2024-10-27] MED LIST changes: +TAMS-35 PO; +[UNRECOGNIZED DRUG - CODE] XX
[2024-10-27 11:47] LABS: Basophils # (auto) 0.1 10 ^3/uL (0-0.2); Eosinophils # (auto) 0.1 10 ^3/uL (0-0.8); Hematocrit 39.2 % (36.0-46.0); Mean Corpuscular Hgb Conc. 31.3 g/dL (32.0-36.0); Neutrophils # (auto) 7.5 10 ^3/uL (1.6-8.6)
[2024-10-27 11:50] LABS: Eosinophils % (auto) 1.2 % (0.0-7.0); Hemoglobin 12.2 g/dL (12.2-16.2); Lymphocytes % (auto) 19.4 % (10.0-50.0); Mean Corpuscular Volume 57.6 fL (80.0-100.0); Monocytes # (auto) 0.5 10 ^3/uL (0-1.3); Monocytes % (auto) 4.9 % (0.0-12.0); Neutrophils % (auto) 73.5 % (37.0-80.0); Nucleated Red Blood Cells % 0.1 %; Platelet Count (auto) 305 10^3/uL (140-450); Red Cell Distribution Width 19.9 % (11.8-14.3); White Blood Cell 10.1 10^3/uL (4.4-10.8)
[2024-10-27 12:22] LABS: % Iron Saturation 26.4 % (15-50); Alanine Aminotransferase 14 U/L (7-40); Alkaline Phosphatase 110 U/L (46-116); Anion Gap 7 (5-15); BUN/Creatinine Ratio 20.8 (10.0-20.0); Blood Urea Nitrogen 15 mg/dL (9-23); Calcium 10.2 mg/dL (8.7-10.4); Carbon Dioxide 28 mmol/L (20-31); Chloride 103 mmol/L (98-107); Potassium 3.7 mmol/L (3.5-5.1); Sodium 138 mmol/L (136-145)
[2024-10-27 12:23] LABS: Albumin 4.7 g/dL (3.2-4.8); Bilirubin, Total 0.5 mg/dL (0.2-1.0); Total Protein 7.7 g/dL (5.7-8.2)
[2024-10-27 12:26] LABS: Aspartate Aminotransferase 10 U/L (13-40); Glucose 132 mg/dL (74-106)
[2024-10-27 13:30] LABS: Anisocytosis Moderate; Hypochromia Slight
[2024-10-27 13:31] LABS: Platelet Estimate Adequate
== END | disposition home or self-care (01) ==
LOC: LAB 11:16
PROVIDERS: ATTEND Nurse Practitioner Family
DX: Z11.3 Encounter for screening for infections with a predominantly sexual mode of transmission (principal); Z86.2 Personal history of diseases of the blood and blood-forming organs and certain disorders involving the immune mechanism
CPT/HCPCS: 36415; 80053; 82607; 82728; 83540; 83550; 85025

== ENCOUNTER 2024-12-15 09:31 | Emergency (ER) | payer BC ==
[~2024-12-15] VITALS: Ht 165.1 cm; Wt 103.0 kg
[2024-12-15 09:39] VITALS: BP 126/66; PULSE 92; RESP 18; TEMP 98.6; O2SAT 99
--- NOTE | 2024-12-15 10:25 | ED.PDOC ---
HPI (NEURO) HPI Comments Three 4-year-old female presented to the [facility] complaining of a headache nausea dizziness neck pain She was at the basketball with her kids yesterday and the ball hit her on the left side of her at she was knocked off but not totally passed out She was feeling dizzy lightheaded nauseous with the head and neck pain and this morning while at work the nose is was bothering her to the point of coming to the urgent care for further care Chief Complaint: Head Injury Time Seen by MD: 09:52 Primary Care Provider: Genny Gandhi Notes: Nurses Notes, Medications, Allergies Information Source: Patient Mode of Arrival: Ambulatory Severity: Mild, Moderate Dizziness/Weakness Severity: Other (Not feeling well at work) Headache Severity: Moderate Timing: Hours Duration: Since onset Headache Quality: Aching, Tight Headache Location: Temporal Onset: With light exertion Circumstances: Trauma Symptoms: Near syncope, Imbalance History of: None Modifying factors: Turning head, Light Associated Signs and Symptoms: Headache, Nausea, Neck Pain, Photophobia Past Medical History PAST MEDICAL HISTORY: Denies Surgical History: Tubal Ligation [employer]ICER History: Unknown Family History Family History: Unknown Social History Smoker: Non-Smoker Alcohol: Denies ETOH Use Drugs: Denies Drug Use Lives In: Home Constitutional: reports: malaise; denies: chills, diaphoresis, fatigue, fever, sweats, weakness, others EENTM: reports: photophobia; denies: blurred vision, double vision, ear bleeding, ear discharge, ear drainage, ear pain, ear ringing, eye pain, eye redness, hearing loss, mouth pain, mouth swelling, nasal discharge, nose bleeding, nose congestion, nose pain, tearing, throat pain, throat swelling, voice changes, others Respiratory: denies: cough, hemoptysis, orthopnea, SOB at rest, shortness of breath, SOB with excertion, stridor, wheezing, others Cardiovascular: reports: dizzy spells; denies: chest pain, diaphoresis, Dyspnea on exertion, edema, irregular heart beat, left arm pain, lightheadedness, palpitations, PND, syncope, others Gastrointestinal: denies: abdomen distended, abdominal pain, blood streaked bowels, constipated, diarrhea, dysphagia, difficulty swallowing, hematemesis, me helen, nausea, poor appetite, poor fluid intake, rectal bleeding, rectal pain, vomiting, others Genitourinary: denies: abnormal vagina bleeding, burning, dyspareunia, dysuria, flank pain, frequency, hematuria, incontinence, pain, , vagina discharge, urgency, others Neurological: reports: dizziness, headache; denies: fainting, left sided numbness, left sided weakness, numbness, paresthesia, pre-existing deficit, righ t sided numbness, right sided weakness, seizure, speech problems, tingling, tremors, weakness, others Musculoskeletal: denies: back pain, gout, joint pain, joint swelling, muscle pain, muscle stiffness, neck pain, others Integumetry: denies: bruises, change in color, change in hair/nails, dryness, laceration, lesions, lumps, rash, wounds, others Allergic/Immunocompromised: denies: Difficulty Healing, Frequent Infections, Hives, Itching, others Hematologic/Lymphatic: denies: anemia, blood clots, easy bleeding, easy bruising, swollen glands, others Endocrine: denies: excessive hunger, excessive sweating, excessive thirst, excessive urination, flushing, intolerance to cold, intolerance to heat, unexplained weight gain, unexplained weight loss, others Psychiatric: denies: anxiety, bipolar disorder, depression, hopeless, panic disorder, schizophrenia, sleepless, suicidal, others All Other Systems: Reviewed and Negative Physical Exam General Appearance: Mild Distress HEENT: Normal ENT Inspection, PERRL/EOMI Neck: Full Range of Motion, Normal, Normal Inspection, Tender Lateral Respiratory: Chest Non-Tender, Lungs Clear, No Accessory Muscle Use, No Respiratory Distress, Normal Breath Sounds Cardiovascular: No Edema, No JVD, No Murmur, No Gallop, Normal Peripheral Pulses, Regular Rate/Rhythm Breast Exam: Deferred Gastrointestinal: No Organomegaly, Non Tender, No Pulsatile Mass, Normal Bowel Sounds, Soft Genitalia: Deferred Pelvic: Deferred Rectal: Deferred Extremities: No calf tenderness, Normal capillary refill, Normal inspection, Normal range of motion, Non-tender, No pedal edema Neurologic: Alert, Dizziness, Headache, Normal Affect, Normal Mood Cerebellar Function: Normal Reflexes: Normal Skin: Dry, Normal Color, Warm Peripheral Pulses: 1+ carotid (R), 1+ carotid (L) Lymphatic: No Adenopathy Was a procedure done? Was a procedure done?: No Differential Diagnosis (SZ) Seizure: N/A General Weakness: N/A Headache: Closed Head Injury, Post-Traumatic X-Ray, Labs, Meds, VS Vital Signs Date Time Temp Pulse Resp B/P (MAP) Pulse Ox O2 Delivery O2 Flow Rate FiO2 12/15/24 09:39 98.6 92 18 126/66 (86) 99 98.6 12/15/24 09:39 92 18 99 Room Air 12/15/24 09:39 98.6 92 18 126/66 (86) 99 98.6 Current Medications Medications (Trade) Dose Ordered Sig/Ingrid Route Start Time Stop Time Status Last Admin Ketorolac Tromethamine (Toradol Injection) 60 mg ONCE ONCE IM 12/15/24 12:00 12/15/24 12:01 DC 12/15/24 11:59 X-Ray, Labs, Meds, VS Comment Course in the [employer] eventful patient came in because of headache dizziness lightheadedness eight by basketball yesterday did not lose consciousness but was knocked out CT of the head is negative Patient will be discharged home to follow up with her PCP Time of 1ST Reevaluation: 10:24 Reevaluation 1ST: Unchanged Time of 2ND Reevaluation: 11:48 Reevaluation 2ND: Improved Consultation: PCP Patient Education/Counseling: Diagnosis, Treatment, Prognosis, Need For Follow Up Family Education/Counseling: Diagnosis, Treatment, Prognosis, Need For Follow Up Departure 1 Departure Time of Disposition: 11:49 Impression: Primary Impression: Head injury due to trauma Additional Impression: Concussion Qualified Codes: S06.0X0A - Concussion without loss of consciousness, initial encounter Disposition: HOME / SELF CARE / HOMELESS Condition: Fair Additional Instructions: Follow up with your PCP Push fluids e-Prescriptions Dexamethasone (Decadron) 4 Mg Tb 4 MG PO BID for 5 Days, #10 TAB Prov: MATT SHERMAN MD 12/15/24 Discharged With: Self Critical Care Note Critical Care Time?: No Stability Stability form required: No Heart Score Heart Score: Heart Score Response (Comments) Value History N/A 0 EKG N/A 0 Age <45 0 Risk Factors No known risk factors 0 Troponin N/A 0 Total 0 MATT SHERMAN MD Dec 15, 2024 10:25
--- NOTE | 2024-12-15 10:58 | DVH ---
EXAM: CT HEAD WITHOUT CONTRAST HISTORY: Hit by basketball COMPARISON: None TECHNIQUE: Axial images of the head were obtained and reformatted in coronal and sagittal planes. All CT scans at this medical facility are performed using dose modulation techniques as appropriate t o a performed exam including the following: Automated exposure control was utilized; adjustment of th e MA and/or KV according to patient size; and use of iterative reconstruction technique. CT Dose: CTDI volume is 55 mGy. Dose-length product is 974 mGy*cm FINDINGS: There is no evidence of acute intracranial hemorrhage, mass, mass effect midline shift. There is no h ydrocephalus or extra-axial fluid collection. Jones-white matter differentiation is maintained. The visualized paranasal sinuses and mastoid air cells are clear. The calvarium is intact. IMPRESSION: 1. No acute intracranial process. HS:Y
[2024-12-15] MEDS ORDERED: DEX4T PO (11:51)
[2024-12-15] MEDS: KETOROLAC TROMETH 60MG/2ML VIAL IM ONE (11:59)
== END 2024-12-15 12:02 | disposition home or self-care (01) ==
LOC: ER 09:31
DX: S06.0X0A Concussion without loss of consciousness, initial encounter (principal); Z98.51 Tubal ligation status; W21.05XA Struck by basketball, initial encounter; Y93.89 Activity, other specified; Y92.89 Other specified places as the place of occurrence of the external cause; Y99.8 Other external cause status
CPT/HCPCS: 70450; 96372; 99285; J1885

== ENCOUNTER 2025-04-13 07:27 | Inpatient (IN) | payer BC, OTHER ==
[2025-04-10 08:19] LABS: Hemoglobin 12.8 g/dL (12.2-16.2); Nucleated Red Blood Cells % 0.1 %
[2025-04-10 08:23] LABS: Hematocrit 39.7 % (36.0-46.0); Mean Corpuscular Hemoglobin 18.4 pg (28.0-32.0); Mean Corpuscular Volume 57.0 fL (80.0-100.0)
[2025-04-10 08:24] LABS: Urine Protein, UAD Negative (Negative)
[2025-04-10 08:36] LABS: INR 0.94 (0.9-1.15); Partial Thromboplastin Time 29.7 SEC (24.5-34.5); Prothrombin Time 10.0 sec (9.3-11.8)
[2025-04-10 08:37] LABS: Alanine Aminotransferase 13 U/L (7-40); Albumin 4.8 g/dL (3.2-4.8); Alkaline Phosphatase 105 U/L (46-116); Anion Gap 10 (5-15); BUN/Creatinine Ratio 18.8 (10.0-20.0); Bilirubin, Total 0.7 mg/dL (0.2-1.0); Blood Urea Nitrogen 13 mg/dL (9-23); Calcium 10.1 mg/dL (8.7-10.4); Carbon Dioxide 25 mmol/L (20-31); Chloride 103 mmol/L (98-107); Glucose 98 mg/dL (74-106); Potassium 3.9 mmol/L (3.5-5.1); Sodium 138 mmol/L (136-145); Total Protein 7.8 g/dL (5.7-8.2)
[2025-04-10 09:24] LABS: Anisocytosis Slight; Ovalocytes FEW; Stomatocytes Few
[~2025-04-13] VITALS: Ht 165.1 cm; Wt 110.9 kg
--- NOTE | 2025-04-13 07:21 | DVHHP2 ---
INGREDIENT SPECIALIST CC & HPI Date Date of Admission: Apr 13, 2025 Chief Complaints: Reason for admission: Scheduled Hysterectomy History of Present Complaints History of Present Complaints 34y SAB 1 Admitted for vNOTES vs LAVH hysterctomy Indication: Pelvic Pain, AUB-L, AUB-A HPI: Patient w/ AUB, found to have enlarging intramural fibroid up to 5cm in size. Pelvic US also suggestive of adenomyosis Patient endorses pelvic pain and heavy menstrual bleeding. Unresponsive to medical management with hormones and prior endometrial ablation, Past Medical History Cardiac: No pertinent Hx Pulmonary: No pertinent Hx Central Nervous System: No pertinent Hx GI: No pertinent Hx Hemotology/Oncology: No pertinent Hx Hepatobiliary: No pertinent Hx Psychiatric: No pertinent Hx Musculoskeletal: No pertinent Hx Rheumotologic: No pertinent Hx Infectious Disease: No peritnent Hx ENT: No pertinent Hx Renal/: No pertinent Hx Endocrine: No pertinent Hx Dermatology: No pertinent Hx Past Surgical History: Tubal ligation, Other (Endometrial Ablation, D&C, Shock wave lithotripsy) INGREDIENT SPECIALIST History INGREDIENT SPECIALIST History INGREDIENT SPECIALIST History: PAP NILM up to date Allergies: Coded Allergies: Shellfish Allergy (Verified Allergy, Intermediate, 10/02/24) Home Meds Active Scripts Ibuprofen (Ibuprofen) 800 Mg Tab, 800 MG PO TID PRN for 15 Days, #40 TAB Prov:WISAM THOMAS DO 12/02/21 Family History: Patient reports no known family medical history. Family History No known family Hx of Uterine, Cervical, breast or ovarian cancers Social History Denies EtOH, Tobacco or Drug use Review of Systems Constitutional: No symptom reported Ears, Nose, & Throat: No symptom reported Eyes: No symptom reported Pulmonary/Respiratory: No symptom reported Cardiovascular: No symptom reported Gastrointestinal: No symptom reported Genitourinary: No symptom reported Musculoskeletal: No symptom reported Skin: No symptom reported Psychiatric: No symptom reported Endocrine: No symptom reported Hemotologic/Lymphatic: No symptom reported Physical Exam Physical Exam HEENT: NCAT Heart: Rhythm Normal Abdomen: Soft Extremities: Normal Reflexes: Normal Stone Gang Sawyer/Pelvic Exam: Other (Enlarged, globular uterus 12 wk size) Assessment and Plan Plan Assessment and Plan: Abnormal uterine bleeding due to Fibroids and Adenomyosis (AUB-L, AUB-A) Chornic pelvic pain Plan: Scheduled for surgery, consent to read: - Vaginal Natural Orifice transluminal endoscopic surgery (vNOTES) hysterectomy, possible laparosocopic versus abdominal hysterectomy, possible bilateral salpingoophorectomy, possible cystoscopy. All R/B/A of surgery discussed with patient in detail. Risks of scar, pain, bleeding, infection, injury to bowel/bladder, adjacent organs, possible blood transfusion, possible sexual dysfunction, dyspareunia. possible need for future surgery on remaining tubes or ovaries. No guarantee given for cessation of pelvic pain as other etiologies can sometimes be the cause. Patient verbalized understanding of risks and expectations. All questions answered. Desires to proceed w/ planned procedure. Informed consent obtained. Visit Coding OBGYN Date of Service: Apr 13, 2025 Billing Provider: OMAR SIMMONS DO DIRECT CARE SPECIALIST Common Visit Codes: [id number] INP/OBS CARE (HIGH) OMAR SIMMONS DO Apr 13, 2025 07:21
[~2025-04-13 07:27] MED LIST changes: -HYDR-4902 PO; -ONDA-144 PO; -TAMS-35 PO; -[UNRECOGNIZED DRUG - CODE] XX
[2025-04-13] MEDS ORDERED: MORPHINE SULFATE INJ 2 MG/ml SYRG IV PRN (07:45)
[2025-04-13] MEDS ORDERED: MORPHINE SULFATE 4 MG/ML SYR/VIAL IV PRN (07:45)
[2025-04-13] MEDS ORDERED: HYDROmorphone HCL 2 MG/ML VL/or syr IV PRN ×2 (07:45→12:45)
[2025-04-13] MEDS ORDERED: HYDROmorphone HCL 2 MG/ML VL/or syr ONE (08:16)
[2025-04-13] MEDS ORDERED: SODIUM CHLORIDE LOCK 50 ML ONE (08:16)
[2025-04-13] MEDS ORDERED: LIDOCAINE 1% INJ PF 5ML AMP ONE (08:16)
[2025-04-13] MEDS ORDERED: fentaNYL CITRATE 5 ML ONE ×2 (08:16→11:01)
[2025-04-13] MEDS ORDERED: fentaNYL CITRATE 100 MCG/2 ML VL ONE (08:16)
[2025-04-13] MEDS ORDERED: PROPOFOL 10 MG/ML 20 ML IV ONE (08:16)
[2025-04-13] MEDS ORDERED: ROCURONIUM 10MG/ML 10ML VIAL IV ONE (08:16)
[2025-04-13] MEDS ORDERED: MIDAZOLAM HCL 2MG/2ML 2ml VIAL (1mg/ml) ONE (08:16)
[2025-04-13] MEDS ORDERED: ONDANSETRON HCL 4 MG/2 ML VIAL ONE (08:16)
[2025-04-13] MEDS ORDERED: KETAMINE 50mg/ML 1ml syringe ONE (08:16)
[2025-04-13] MEDS ORDERED: LIDOCAINE HCL 2% TOP JELLY 5ML TOP ONE (09:25)
[2025-04-13] MEDS: BUPIVACAINE HCL 0.25% P/F 10 ML VIAL ONE (10:23)
[2025-04-13] MEDS: VASOPRESSIN 20 UNIT/ML ONE (10:24)
[2025-04-13] MEDS: LIDOCAINE W/ EPINEPHRINE 1% 20ML VIAL ONE (10:24)
[2025-04-13] MEDS ORDERED: NEOSTIGMINE 1 MG/ML INJ (10mg/10ML VIAL) ONE (11:25)
[2025-04-13] MEDS ORDERED: GLYCOPYRROLATE 0.2 MG/ML 1ML VIAL ONE (11:25)
[2025-04-13 12:09] VITALS: O2SAT 100
[2025-04-13] MEDS ORDERED: diphenhdrAMINE HCL 50 MG/1 ML VL ONE (12:20)
[2025-04-13] MEDS: HYDROmorphone HCL 2 MG/ML VL/or syr IV PRN ×2 (12:25→15:22)
[2025-04-13] MEDS ORDERED: IBUPROFEN 800 MG TAB PO PRN (12:45)
--- NOTE | 2025-04-13 12:46 | DVHOP ---
DATE OF SURGERY: 04/13/2025 PREOPERATIVE DIAGNOSES: * Chronic pelvic pain. * Suspected adenomyosis. * Abnormal uterine bleeding with uterine leiomyoma. * Failed endometrial ablation. FINAL DIAGNOSES: * Chronic pelvic pain. * Suspected adenomyosis. * Abnormal uterine bleeding with uterine leiomyoma. * Failed endometrial ablation. * Right ovarian cyst. SURGEON: Clement Yousif DO TRAVELING CLERK: Simona Quezada, surgical scheduler TYPE OF ANESTHESIA: General endotracheal. ANESTHESIOLOGIST: Christin Barajas MD PROCEDURES PERFORMED: * VNOTES (vaginal natural orifice transluminal endoscopic surgery) total vaginal hysterectomy.(TVH) * Bilateral salpingectomy. * Right ovarian cystectomy, partial oophorectomy. * Diagnostic cystoscopy. INDICATION FOR PROCEDURE: The patient is a 34-year-old female. She has completed childbearing, status post bilateral tubal ligation. The patient failed endometrial ablation and continues to have irregular menstrual bleeding associated with chronic pelvic pain. The patient has pain mid cycle. The patient's ultrasound has suggestion of uterine adenomyosis and a 5cm degenerating fundal intramural fibroid. The patient declined alternative methods of management and requested hysterectomy. The risks, benefits, and alternatives to surgery were discussed with the patient and informed consent was obtained. She was counseled regarding the possible risks of infection, wound dehiscence, sexual dysfunction, de guero urinary incontinence, future pelvic organ prolapse, possible injury to bowel, bladder, adjacent organs, possible blood transfusion. Informed consent was obtained. DESCRIPTION OF FINDINGS: A 12 to 14-week size uterus, globular. No apparent subserosal leiomyomas. Bilateral fallopian tubes with previous evidence of tubal ligation (clips). A large right ovarian cyst requiring a right ovarian cystectomy and partial oophorectomy. The left ovary was also enlarged, to about 4 cm in size, with no discrete cysts. Otherwise, normal pelvis. Normal cystoscopy at the conclusion of surgery. Bilateral ureteral orifices were seen with bilateral efflux of ureteral jets. TECHNICAL PROCEDURE: After informed consent was obtained, the patient was taken to the operating room where she underwent smooth induction with general anesthesia. The patient was placed in dorsal lithotomy position in Billy stirrups. Vagina, perineum, abdomen were thoroughly prepped and the patient sterilely draped in usual fashion. A pelvic exam was then performed under anesthesia with the above-noted findings. A weighted speculum was placed in the patient's vagina. The anterior and posterior lip of the cervix was grasped with Yudith clamps. The vaginal mucosa was injected circumferentially with a dilute solution of vasopressin until blanching of the tissue was noted. Hydrodissection was used until the tissue appeared pale. Next, a circumferential incision was made with the scalpel at the cervical-vaginal junction. This incision was carried sharply to expose the underlying fascial tissues. The posterior vaginal epithelium was grasped with tissue forceps and sharp entry into the posterior cul-de-sac was performed. The incision was manually stretched. The posterior peritoneum was sutured to the posterior vaginal mucosa using #0 Vicryl and tagged for further identification. A long weighted speculum was then placed into the patient's vagina and into the peritoneal cavity. Next, the anterior colpotomy was performed in usual manner. The avascular plane was easily identified. It was grasped with tissue forceps and sharply entered on first attempt. There was no bleeding noted. The anterior colpotomy was manually stretched. A right-angle retractor was placed into the incision. Next, the cardinal and uterosacral ligaments were clamped, transected, and suture ligated bilaterally using 0 Vicryl stitches. These pedicles were tagged with Kati forceps for future use. Next, the uterine arteries were clamped, transected, and suture ligated bilaterally with 0 Vicryl stitches. Good hemostasis was obtained. The V-path Vaginal Joe setup was placed into the patient's vagina. The gel cap was then placed. A moist laparotomy sponge was packed into the patient's abdomen through the vaginal opening. Then, pneumoperitoneum was obtained. Using the Voyant bipolar energy device, the left broad ligament was identified and taken down with bipolar cautery and the tissue was incised with no bleeding noted. This was carried up to the level of the cornual region where the uteroovarian ligament and the round ligament pedicles were desiccated and transected. A similar procedure was repeated on the contralateral side. However, there was a large right ovarian cyst that limited visualization. Therefore, at this point, all instrumentation was removed from the patient's vagina. I then replaced the long weighted speculum and using single-tooth tenacula, I applied pressure over the fundus of the uterus and inverted the uterus in the vagina. The high pedicles were identified. The right uteroovarian and round ligament pedicles were doubly clamped, transected, and suture ligated with 0 Vicryl stitches. Hemostasis was obtained. At this point, the uterus was delivered through the vagina. I then identified the right ovarian cyst and transvaginally I incised the ovarian capsule with cautery. I then sharply dissected the ovarian cyst with Metzenbaum scissors. The cyst was hard and indurated, feeling almost like a fibroma. Partial oophorectomy was performed sharply with scissors. The ovary was repaired using 2-0 Vicryl in continuous running fashion with good tissue approximation and hemostasis noted. The right fallopian tube was found. It was traced to its fimbriated end. Using the Voyant energy device, the fallopian tube was transected across the mesosalpinx and the tube delivered. There was no bleeding from the mesosalpinx noted. Following this procedure, the left fallopian tube was similarly found. It was traced to its fimbriated end. It was grasped with a Whitman clamp and then using the Voyant device, the fallopian tube was dissected off the mesosalpinx and transected and delivered through the vagina. The specimen was then submitted. Survey of all the pedicles revealed good hemostasis. I then proceeded run suture across the posterior vaginal cuff and posterior peritoneum using #0 Vicryl in continuous running locking fashion to aid with oozing from the posterior vaginal cuff. I then proceeded to close the vagina in transverse fashion. using #0 PDS The anterior and posterior vaginal godinez were approximated in continuous running locking fashion transversely using 0 PDS. The ipsilateral cardinal and uterosacral ligament pedicles were incorporated into the closure for cuff support. At this point, all instrumentation was removed from the patient's vagina. Hemostasis was once again confirmed. I then removed the Quinones catheter. I performed a diagnostic cystoscopy using normal saline to distend the bladder. Anesthesia gave methylene blue IV. I was able to visualize the trigone, the dome of the bladder. It appeared normal other than trabeculations on the wall of the bladder noted. Bilateral ureteral orifices were visualized with jet streams of blue urine noted bilaterally. At this point, the cystoscope was removed. The urethra was inspected and appeared normal on the way out. I replaced a new Quinones catheter. The patient was then taken out of lithotomy position, awakened, and taken to recovery room in stable condition. INTRAOPERATIVE COMPLICATIONS: None. ESTIMATED BLOOD LOSS: 150 mL. POSTOPERATIVE CONDITION: Stable. SPECIMENS: Uterus, bilateral fallopian tubes, and right ovarian cyst. MEDICATIONS: The patient received 2 grams of Ancef prior to skin incision. DO YOVANI Reich TID: [id number] RECEIPT: [id number] MTDD
[2025-04-13] MEDS: LACTATED RINGER'S 1,000 ML IV SCH (15:00)
[2025-04-13] MEDS: ACETAMINOPHEN IV 100 ML IV ONE (15:21)
[2025-04-13] MEDS: ceFAZolin 2 GM/D5W50ml 50 ML IV ONE (15:23)
[2025-04-13] MEDS: FAMOTIDINE (10MG/ML) 2ML VL IV ONE (15:23)
[2025-04-13] MEDS: METHYLENE BLUE 0.5% 5MG/ML 10ml AMP IV ONE (15:23)
[2025-04-13] MEDS: METOCLOPRAMIDE HCL 5MG/ml INJ 2ml VIAL IV ONE (15:23)
[2025-04-13] MEDS: KETOROLAC TROMETH 30 MG/ML 1ML VIAL IV ONE (15:23)
[2025-04-13] MEDS: HYDROmorphone HCL 2 MG/ML VL/or syr ONE (15:24)
[2025-04-13 16:31] VITALS: BP 99/61; PULSE 95; RESP 20; TEMP 97.8; O2SAT 98
[2025-04-13] MEDS ORDERED: HYDR-4798 PO (16:44)
[2025-04-13] MEDS ORDERED: IBUP-1455 PO (16:44)
[2025-04-13 18:27] LABS: Hematocrit 35.2 % (36.0-46.0); Hemoglobin 11.1 g/dL (12.2-16.2); Mean Corpuscular Hemoglobin 18.0 pg (28.0-32.0); Mean Corpuscular Volume 56.9 fL (80.0-100.0); Nucleated Red Blood Cells % 0.0 %
[2025-04-13 20:17] LABS: Anisocytosis Moderate
[2025-04-13 21:00] VITALS: BP 115/79; PULSE 109; RESP 19; TEMP 97.9; O2SAT 99
[2025-04-13] MEDS: HYDROcodone-ACET 10/325MG TAB PO PRN (22:19)
[2025-04-14 01:00] VITALS: BP 116/52; PULSE 113; RESP 19; TEMP 97.8; O2SAT 96
[2025-04-14 05:00] VITALS: BP 113/55; PULSE 104; RESP 18; TEMP 97.8; O2SAT 95
[2025-04-14] MEDS: ONDANSETRON HCL 4 MG/2 ML VIAL IV PRN (06:16)
[2025-04-14] MEDS ORDERED: DOCU-94 PO (07:37)
--- NOTE | 2025-04-14 07:40 | DVHDS2 ---
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 Patient was counseled about treatment plan, medications, possible side effects, patientverbalized understanding. All questions were answered to the best of my ability. This discharge took greater then 30 minutes in planning, reviewing documentation, counseling the patient, and discussing with other team members." Visit Coding OBGYN Date of Service: Apr 14, 2025 Billing Provider: OMAR SIMMONS DO OCULAR CARE TECHNICIAN Common Visit Codes: 97127-XXP/OBS DISCH DAY <30MIN OMAR SIMMONS DO Apr 14, 2025 07:40
[2025-04-14 07:57] LABS: Hematocrit 35.1 % (36.0-46.0); Hemoglobin 10.8 g/dL (12.2-16.2); Mean Corpuscular Hemoglobin 17.8 pg (28.0-32.0); Mean Corpuscular Volume 57.5 fL (80.0-100.0); Nucleated Red Blood Cells % 0.1 %
[2025-04-14 08:03] LABS: Alanine Aminotransferase 10 U/L (7-40); Alkaline Phosphatase 88 U/L (46-116); Anion Gap 12 (5-15); BUN/Creatinine Ratio 13.1 (10.0-20.0); Calcium 9.7 mg/dL (8.7-10.4); Carbon Dioxide 22 mmol/L (20-31); Chloride 104 mmol/L (98-107); Potassium 4.0 mmol/L (3.5-5.1); Sodium 138 mmol/L (136-145); Total Protein 6.8 g/dL (5.7-8.2)
[2025-04-14 08:04] LABS: Albumin 4.2 g/dL (3.2-4.8)
[2025-04-14 08:05] LABS: Bilirubin, Total 0.6 mg/dL (0.2-1.0)
[2025-04-14 08:06] LABS: Blood Urea Nitrogen 8 mg/dL (9-23); Glucose 109 mg/dL (74-106)
[2025-04-14 09:30] VITALS: BP 107/66; PULSE 89; RESP 16; TEMP 98.7; O2SAT 98
[2025-04-14] MEDS ORDERED: ZOFR4T PO (12:07)
[2025-04-14 13:10] VITALS: BP 117/69; PULSE 88; RESP 18; TEMP 98.1; O2SAT 96
== END 2025-04-14 14:00 | disposition home or self-care (01) | DRG 743 ==
LOC: SUR 07:27 → OVERFLOW 12:32 → WEST WING 14:34
PROVIDERS: ADMIT Obstetrics & Gynecology; ATTEND Obstetrics & Gynecology
PROC: 0UB08ZZ Excision of Right Ovary, Via Natural or Artificial Opening Endoscopic (ICD-10-PCS; 2025-04-13)
PROC: 0UB78ZZ Excision of Bilateral Fallopian Tubes, Via Natural or Artificial Opening Endoscopic (ICD-10-PCS; 2025-04-13)
PROC: 0UT97ZZ Resection of Uterus, Via Natural or Artificial Opening (ICD-10-PCS; 2025-04-13)
PROC: 0TJB8ZZ Inspection of Bladder, Via Natural or Artificial Opening Endoscopic (ICD-10-PCS; principal; 2025-04-13 09:23)
DX: N83.291 Other ovarian cyst, right side (principal); D25.9 Leiomyoma of uterus, unspecified; D25.1 Intramural leiomyoma of uterus; G89.29 Other chronic pain; Z91.013 Allergy to seafood; Z98.51 Tubal ligation status
CPT/HCPCS: 36415; 80053; 81001; 84702; 85025; 85610; 85730; 86850; 86900; 86901; G0378; J0131; J1100; J2250; J2405; J2704; J3490

== ENCOUNTER 2025-04-25 16:39 | Emergency (ER) | payer OTHER ==
[~2025-04-25] VITALS: Ht 165.1 cm; Wt 104.5 kg
[~2025-04-25 16:39] MED LIST changes: +DOCU-94 PO; +HYDR-4798 PO; +IBUP-1455 PO; -IBUP-1456 PO; +ZOFR4T PO
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
--- NOTE | 2025-04-25 17:48 | DVH ---
CT CT AB PEL WO CON-NO ORAL OR IV INDICATION: [facility] EXAM DATE: 04/25/2025 05:13 PM COMPARISON: CT CT AB PEL WO CON-NO ORAL OR IV on DOS: 10/02/24 RADIATION DOSE: CTDIvol: 25.97 mGy, DLP: 1286.71 mGy*cm PROCEDURE: Helical CT images were obtained of the abdomen and pelvis without IV contrast Sagittal and coronal reconstructions are provided. ORAL CONTRAST: None. ADDITIONAL IMAGES / REFORMATS: None All C T scans at this medical facility are performed using dose modulation techniques as appropriate to a p erformed exam including the following: Automated exposure control was utilized; adjustment of the MA and/or KV according to patient size; and use of iterative reconstruction technique. FINDINGS: LUNG BASE: Normal. LIVER: Normal. GALLBLADDER AND BILIARY TREE: No calcified gallstones. Normal caliber wall. No intra- or extrahepatic biliary ductal dilation. PANCREAS: Normal. SPLEEN: Normal. BOWEL: Normal. Normal appendix. ADRENALS: Normal. KIDNEYS AND URETER: Punctate nonobstructive left kidney stones. BLADDER: Normal. REPRODUCTIVE ORGANS: Absent uterus. LYMPH NODES:No lymphadenopathy. PERITONEUM: No ascites or free air. No other fluid collection. VESSELS: Scattered atherosclerotic calcifications are noted. RETROPERITONEUM: Normal. ABDOMINAL WALL: Small umbilical hernia. BONES: Scattered osseous degenerative changes are noted. IMPRESSION: No acute intraabdominal abnormality.
[2025-04-25 18:10] VITALS: BP 116/56; PULSE 75; RESP 16; TEMP 98.7; O2SAT 99
== END 2025-04-25 18:29 | disposition home or self-care (01) ==
LOC: ER 16:39
DX: S39.011A Strain of muscle, fascia and tendon of abdomen, initial encounter (principal); Z90.710 Acquired absence of both cervix and uterus; V89.2XXA Person injured in unspecified motor-vehicle accident, traffic, initial encounter; Y93.89 Activity, other specified; Y92.410 Unspecified street and highway as the place of occurrence of the external cause; Y99.8 Other external cause status
CPT/HCPCS: 74176

== ENCOUNTER 2025-05-29 08:41 | Outpatient (CLI) | payer OTHER ==
[2025-05-29 09:42] LABS: Hemoglobin 11.5 g/dL (12.2-16.2); Nucleated Red Blood Cells % 0.1 %
[2025-05-29 09:47] LABS: Hematocrit 35.9 % (36.0-46.0); Mean Corpuscular Hemoglobin 18.2 pg (28.0-32.0); Mean Corpuscular Volume 56.7 fL (80.0-100.0)
[2025-05-29 10:01] LABS: Urine Protein, UAD TRACE (Negative)
[2025-05-29 10:09] LABS: Alanine Aminotransferase 12 U/L (7-40); Alkaline Phosphatase 105 U/L (46-116); Anion Gap 12 (5-15); BUN/Creatinine Ratio 14.7 (10.0-20.0); Blood Urea Nitrogen 10 mg/dL (9-23); Calcium 9.2 mg/dL (8.7-10.4); Carbon Dioxide 24 mmol/L (20-31); Chloride 104 mmol/L (98-107); Glucose 91 mg/dL (74-106); Potassium 3.8 mmol/L (3.5-5.1); Sodium 140 mmol/L (136-145); Total Protein 7.8 g/dL (5.7-8.2); Triglycerides 76 mg/dL (< 150)
[2025-05-29 10:10] LABS: Albumin 4.4 g/dL (3.2-4.8); Cholesterol 179 mg/dL (< 200)
[2025-05-29 10:11] LABS: Bilirubin, Total 0.9 mg/dL (0.2-1.0)
[2025-05-29 10:19] LABS: HDL Cholesterol 70 mg/dL (40-59)
[2025-05-29 11:37] LABS: Hepatitis A Total Antibody Positive (Negative); Hepatitis B Surface Antigen Negative (Negative); Hepatitis C Antibody Negative (Negative)
== END 2025-05-29 17:00 | disposition home or self-care (01) ==
LOC: LAB 08:41
PROVIDERS: ATTEND Nurse Practitioner Family
DX: E78.5 Hyperlipidemia, unspecified (principal); E55.9 Vitamin D deficiency, unspecified; D64.9 Anemia, unspecified; R73.9 Hyperglycemia, unspecified; Z11.3 Encounter for screening for infections with a predominantly sexual mode of transmission
CPT/HCPCS: 36415; 80053; 80061; 81001; 82306; 82607; 83036; 84443; 85025; 86703; 86704; 86706; 86708; 86780; 86803; 87340

== ENCOUNTER → 2025-09-15 | Outpatient (CLI) | payer OTHER ==
[2025-09-15 10:54] LABS: Hematocrit 37.2 % (36.0-46.0); Hemoglobin 11.9 g/dL (12.2-16.2); Mean Corpuscular Hemoglobin 17.8 pg (28.0-32.0); Mean Corpuscular Volume 55.5 fL (80.0-100.0); Nucleated Red Blood Cells % 0.1 %
[2025-09-15 11:00] LABS: Urine Protein, UAD TRACE (Negative)
[2025-09-15 11:13] LABS: Alanine Aminotransferase 17 U/L (7-40); Anion Gap 10 (5-15); BUN/Creatinine Ratio 17.6 (10.0-20.0); Bilirubin, Total 0.9 mg/dL (0.2-1.0); Blood Urea Nitrogen 12 mg/dL (9-23); Calcium 9.6 mg/dL (8.7-10.4); Carbon Dioxide 24 mmol/L (20-31); Chloride 105 mmol/L (98-107); Cholesterol 163 mg/dL (< 200); Glucose 82 mg/dL (74-106); HDL Cholesterol 53 mg/dL (40-59); Sodium 139 mmol/L (136-145); Total Iron Binding Capacity 255.0 ug/dL (250-425); Total Protein 8.1 g/dL (5.7-8.2); Triglycerides 96 mg/dL (< 150)
[2025-09-15 11:14] LABS: Albumin 4.8 g/dL (3.2-4.8); Alkaline Phosphatase 123 U/L (46-116); Iron 43.0 ug/dL (50-170); Potassium 3.4 mmol/L (3.5-5.1)
[2025-09-15 11:17] LABS: Ferritin 153.5 ng/mL (10-291)
== END | disposition home or self-care (01) ==
LOC: LAB 10:12
PROVIDERS: ATTEND Nurse Practitioner Family
DX: E78.5 Hyperlipidemia, unspecified (principal); E55.9 Vitamin D deficiency, unspecified; D64.9 Anemia, unspecified; R73.9 Hyperglycemia, unspecified; Z91.018 Allergy to other foods
CPT/HCPCS: 36415; 80053; 80061; 81001; 82306; 82607; 82728; 82746; 82785; 83036; 83540; 83550; 84443; 85025; 86003